=== PATIENT | female | born 1960 | race Two or more races ===

== ENCOUNTER 2019-03-11 08:41 | Inpatient (IN) | payer MEDICAID ==
[~2019-03-11] VITALS: Ht 162.6 cm; Wt 100.7 kg
[2019-03-11 08:41] VITALS: BP_SYST 117
[~2019-03-11 08:41] MED LIST: GLIP10TA11 PO; LEVO175T2 PO; NEBI10TA2 PO; TOPXL100 PO
--- NOTE | 2019-03-11 08:41 | NUR ---
BROUGHT BACK TO BED #8 AND TRIAGED. REPORT GIVEN TO AVERY
--- NOTE | 2019-03-11 09:07 | NUR ---
Patient is awake, alert, and oriented x4. Patient reports that she has been sick since October with flu like symptoms. Patient states she can not stop throwing up "sometimes", has generalized weakness. Patient denies pain at this time, last night she had lower back pain.
--- NOTE | 2019-03-11 09:15 | NUR ---
ER Dr. Reyes at bedside examining patient.
[2019-03-11] MEDS ORDERED: ASPIRIN 81 MG TAB.CHEW PO ONE (09:30)
[2019-03-11] MEDS ORDERED: LevALBUTEROL HCL 1.25 MG/0.5 ML *CONC.* VIAL.NEB (XOPENEX CONC.) INH ONE (09:30)
[2019-03-11] MEDS ORDERED: NACL 0.9% 1,000 ML IV ONE (09:30)
[2019-03-11 09:33] LABS: BILIRUBIN,URINE NEGATIVE (NEGATIVE); BLOOD, URINE NEGATIVE (NEGATIVE); CLARITY/URINE CLEAR (CLEAR); COLOR,URINE YELLOW (YELLOW); GLUCOSE,URINE 3+ (NEGATIVE); KETONES,URINE 1+ (NEGATIVE); LEUKOCYTE ESTERASE ,URINE TRACE (NEGATIVE); NITRITE, URINE NEGATIVE (NEGATIVE); PH,URINE 5.5 (5.0-8.0); PROTEIN URINE NEGATIVE (NEGATIVE)
[2019-03-11 09:41] LABS: BACTERIA,URINE MODERATE /HPF (None Seen); RBC,URINE 0-3 /HPF (0-3); WBC,URINE 20-50 /HPF (0-3)
[2019-03-11 09:51] LABS: BASOPHILS # (AUTO) 0.1 K/uL (0.0-0.2); BASOPHILS % (AUTO) 0.5 % (0.0-2.0); EOSINOPHILS % (AUTO) 0.1 % (0.0-4.0); HEMATOCRIT 41.5 % (36-48); HEMOGLOBIN 14.1 g/dL (12.0-16.0); LYMPHOCYTES # (AUTO) 0.6 K/uL (1.0-5.5); MEAN CORPUSCULAR HEMOGLOBIN 28 pg (27-31); MEAN CORPUSCULAR HGB CONC 34 % (32-36); MEAN CORPUSCULAR VOLUME 83 fL (79.0-98.0); MONOCYTES # (AUTO) 0.5 K/uL (0.0-1.0); MONOCYTES % (AUTO) 2.4 % (1.7-9.3); NEUTROPHILS # (AUTO) 17.8 K/uL (1.8-7.7); PLATELET COUNT (AUTO) 230 K/uL (130-430); RED BLOOD CELL COUNT(AUTO) 4.98 MIL/uL (4.2-6.2); RED CELL DISTRIBUTION WIDTH 12.1 % (9.0-15.0); WHITE BLOOD COUNT (AUTO) 18.9 K/uL (4.8-10.8)
[2019-03-11 10:00] LABS: CALCIUM 8.8 mg/dL (8.4-11.0); CREATININE 0.93 mg/dL (0.55-1.30); POTASSIUM 3.5 mmol/L (3.5-5.1)
[2019-03-11 10:14] LABS: ALBUMIN 3.2 g/dL (3.4-4.8); TOTAL BILIRUBIN 1.1 mg/dL (0.0-1.0)
[2019-03-11] MEDS ORDERED: cefTRIAXone 1 GM IVPB PREMIX 50 ML IV ONE (10:45)
--- NOTE | 2019-03-11 10:59 | NUR ---
Patient will be admitted to care of Dr. Carrillo. Admitted to medsurg unit. Will go to room 118B. Belongings list completed. Summary report printed. Report will be given at bedside.
--- NOTE | 2019-03-11 11:04 | NUR ---
Transfer to [facility]. Licensed nurse present. IV present no signs or symptoms of infiltration.
--- NOTE | 2019-03-11 11:08 | NUR ---
ADMIT NOTE Received pt from ER to the floor with a diagnosis of pyelonephritis. Admission process initiated. patient oriented to pain management, safety and call light-teach back done.
[2019-03-11] MEDS ORDERED: MORPHINE 2 MG/ML INJ. SYRINGE IVP PRN ×2 (11:15)
[2019-03-11] MEDS ORDERED: DEXTROSE 50% JECT 50 ML DISP.SYRIN IVP PRN (11:15)
[2019-03-11] MEDS ORDERED: ONDANSETRON HCL 4 MG/2 ML VIAL IVP PRN (11:15)
[2019-03-11] MEDS ORDERED: LORazepam 2 MG/ML VIAL IVP PRN (11:15)
[2019-03-11] MEDS ORDERED: MAGNESIUM SULFATE 50 ML IV PRN (11:15)
[2019-03-11] MEDS ORDERED: MUPIROCIN 2% TOPICAL OINTMENT 22 GM NS PRN (11:15)
[2019-03-11] MEDS ORDERED: DOCUSATE SODIUM 100 MG CAPSULE PO PRN (11:15)
[2019-03-11] MEDS ORDERED: ACETAMINOPHEN 325 MG TABLET PO PRN (11:15)
[2019-03-11] MEDS ORDERED: ZOLPIDEM TARTRATE 5 MG TABLET PO PRN (11:15)
[2019-03-11] MEDS: INSULIN LISPRO SLIDING SCALE 100 UNITS/ML VIAL (humaLOG) SUBCUT PRN ×3 (11:51→21:18)
[2019-03-11 12:02] VITALS: BP_SYST 121
[2019-03-11] MEDS: NACL 0.9% 1,000 ML IV SCH ×2 (12:08→21:22)
[2019-03-11 12:45] VITALS: BP_SYST 116
--- NOTE | 2019-03-11 14:30 | NUR ---
Rounds: Patient is asleep. No distress noted.
[2019-03-11 16:25] VITALS: BP_SYST 135
[2019-03-11 17:01] VITALS: BP_SYST 142
--- NOTE | 2019-03-11 17:02 | NUR ---
Fever: Temp= 102.3 (temporal artery), only wants ice pack on the forehead. Encouraged to increase fluid intake with cold water. Dr. Johns is aware. New order received.
[2019-03-11] MEDS: ACETAMINOPHEN 500 MG TABLET PO PRN (17:15)
--- NOTE | 2019-03-11 17:15 | NUR ---
Fever: Medicated for fever 102.3.
--- NOTE | 2019-03-11 19:30 | NUR ---
Opening notes Received report. Patient sitting up in bed. No signs of distress noted. Breathing even and unlabored. IV patent and intact, infusing fluids. Patient afebrile. VSS. Updated patient on plan of care. Patient verbalized understanding. Call light with the patient. Safety precautions in place.
[2019-03-11 20:00] VITALS: BP_SYST 111
[2019-03-11] MEDS: HEPARIN SODIUM,PORCINE 5000 UNITS/ML VIAL SUBCUT SCH (21:17)
--- NOTE | 2019-03-11 21:22 | NUR ---
Medications given. Educated the action and side effects of medications. Patient verbalized understanding and tolerated well. No signs of allergic reaction noted. Provided patient with snacks. No other needs. call light with the patient. Safety precautions in place. visitor at bedside.
[2019-03-12] VITALS (8 sets, daily range): BP systolic 112–184
--- NOTE | 2019-03-12 | NUR ---
SLEEPING NO SIGNS OF DISTRESS NOTED. BREATHING EVEN AND UNLABORED. IVF INFUSING WELL. CALL LIGHT WITH THE PATIENT. SAFETY PRECAUTIONS IN PLACE.
[2019-03-12] MEDS: ACETAMINOPHEN 500 MG TABLET PO PRN ×4 (01:48→22:32)
--- NOTE | 2019-03-12 01:50 | NUR ---
Temp 101 Patient is shivering. Temp 101. PRN Tylenol given. Educated the action and side effects of medications. Patient tolerated well. Patient refuse cooling measures.
--- NOTE | 2019-03-12 04:30 | NUR ---
SHOWER PATIENT SHOWERED. PATIENT RETURNED TO BED. NO SIGNS OF DISTRESS NOTED. BREATHING EVEN AND UNLABORED. IVF INFUSING WELL. NO OTHER NEEDS. CALL LIGHT WITH THE PATIENT. SAFETY PRECAUTIONS IN PLACE.
[2019-03-12] MEDS: LEVOTHYROXINE SODIUM 0.1 MG TABLET PO SCH (06:12)
[2019-03-12] MEDS: NACL 0.9% 1,000 ML IV SCH ×3 (06:12→21:13)
[2019-03-12] MEDS: LEVOTHYROXINE SODIUM 0.075 MG TABLET PO SCH (06:12)
[2019-03-12] MEDS: INSULIN LISPRO SLIDING SCALE 100 UNITS/ML VIAL (humaLOG) SUBCUT PRN ×4 (06:14→22:04)
--- NOTE | 2019-03-12 06:45 | NUR ---
CLOSING NOTES PATIENT RESTING COMFORTABLY IN BED, WATCHING TV. NO SIGNS OF DISTRESS NOTED. BREATHING EVEN AND UNLABORED. IV PATENT AND INTACT, INFUSING FLUIDS. ALL NEEDS MET THROUGHOUT THE SHIFT. CALL LIGHT WITH THE PATIENT. SAFETY PRECAUTIONS IN PLACE. WILL ENDORSE CARE TO DAY SHIFT RN.
--- NOTE | 2019-03-12 07:29 | NUR ---
Initial note: Patient is sleeping comfortable on her left side, no sign of distress. She is on Normal Saline IVF at 100 ml/hr infusing well via left AC #20G, no sign of infiltration. Will continue monitor.
[2019-03-12 07:44] LABS: CALCIUM 8.5 mg/dL (8.4-11.0); CREATININE 0.82 mg/dL (0.55-1.30)
[2019-03-12 07:49] LABS: BASOPHILS % (AUTO) 0.3 % (0.0-2.0); HEMATOCRIT 39.7 % (36-48); HEMOGLOBIN 13.5 g/dL (12.0-16.0); LYMPHOCYTES # (AUTO) 0.9 K/uL (1.0-5.5); MEAN CORPUSCULAR HEMOGLOBIN 29 pg (27-31); MEAN CORPUSCULAR HGB CONC 34 % (32-36); MEAN CORPUSCULAR VOLUME 84 fL (79.0-98.0); MONOCYTES # (AUTO) 0.5 K/uL (0.0-1.0); MONOCYTES % (AUTO) 4.4 % (1.7-9.3); NEUTROPHILS # (AUTO) 9.3 K/uL (1.8-7.7); NEUTROPHILS % (AUTO) 87.3 % (40.0-70.0); PLATELET COUNT (AUTO) 203 K/uL (130-430); RED CELL DISTRIBUTION WIDTH 12.1 % (9.0-15.0); WHITE BLOOD COUNT (AUTO) 10.6 K/uL (4.8-10.8)
[2019-03-12] MEDS: HEPARIN SODIUM,PORCINE 5000 UNITS/ML VIAL SUBCUT SCH ×2 (08:44→21:00)
[2019-03-12] MEDS: METOPROLOL SUCCINATE 50 MG TAB.SR.24H (TOPROL XL) PO SCH (08:45)
[2019-03-12] MEDS ORDERED: cefTRIAXone 1 GM IVPB PREMIX 50 ML IV SCH (09:00)
--- NOTE | 2019-03-12 09:42 | NUR ---
New IV access: IV site is infiltrated. Remove it and re-start a new IV site at left internal forearm # 22G, and resume antibiotics. Addendum: 03/12/19 at 0945 by Marco Antonio Echols RN wrong patient
--- NOTE | 2019-03-12 09:45 | NUR ---
MD sweeney: Dr. Carrillo makes round, aware of chilling and fever. Then he has new order to increase IVF to 150 ml/hr, and states to consult ID, Dr. Corral , if culture positive.
--- NOTE | 2019-03-12 11:22 | NUR ---
Fever: Patient is chilling with Oerk=426.3, ZO=334,RR=20,IN=723/88. Dr. Carrillo is aware of the condition. He states no need to initiated Sepsis protocol, also states that patient got IV bolus already from ER, and he is already increasing IVF to 150 ml/hr and increase the dose of Rocephin, just waiting for the culture results.
[2019-03-12] MEDS: POTASSIUM CHLORIDE 20 MEQ TAB.PRT.SR PO PRN (13:32)
--- NOTE | 2019-03-12 14:01 | NUR ---
Dietitian Recommendations * Recommend [facility] diet w/ Glucerna BID (ONS provides 440 kcal/day, 20 gm protein/day) JOSE, RD Please refer to Nutrition Assessment for details. Addendum: 03/12/19 at [address] Amended: Links added.
--- NOTE | 2019-03-12 14:04 | NUR ---
Potassium: Potassium level this morning =3.0. Give KCl 40 mEq PO as ordered. Patient tolerating well.
--- NOTE | 2019-03-12 16:00 | NUR ---
Fever: Patient is chilling and T=103.2, SE=050, RR=18, PY=886/93. Tylenol given as ordered. Page Dr. Carrillo.
--- NOTE | 2019-03-12 16:30 | NUR ---
new orders: Dr. Carrillo calls back and has ordered to change Antibiotics to Zosyn 3.375 mg IVPB Q 8 hrs. Also inform him that U/C is positive , then he has ordered to consult Dr. Corral.
--- NOTE | 2019-03-12 16:37 | NUR ---
CONSULTATION PAGED/CALLED Reason for Consultation: [] POSITIVE URINE CULTURE Person Who was Notified: [] LEFT A VOICE MESSAGE Consulting Physician: [] DR MEANS Toter Specialty: [] ID Ordering Physician: [] DR Aida FITCH
--- NOTE | 2019-03-12 16:58 | NUR ---
Application Developer Manager/Discharge Assessment Note EMAIL MARKETING COORDINATOR met with patient and at bedside. Patient has recently lost her job and her insurance. 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 Stressed with her the importance of following up with Abdi on the [employer] application. She will be able to fill her prescriptions now. She thinks her PCP will continue to see her, but [facility] information was provided. No other questions or concerns. Provided patient my card and phoned Abdi to assure he will see patient today. No barriers to discharge home with apparent at this time. Application Developer Manager/Case Management/DC Coordinator will remain available.
[2019-03-12] MEDS: PIPERACILLIN/TAZO 3.375/DEX-IS 50 ML IV SCH ×2 (17:43→22:03)
[2019-03-12] MEDS ORDERED: GENTAMICIN 100 mg/50 mL NS 50 ML IV ONE ×2 (18:00→22:37)
--- NOTE | 2019-03-12 18:00 | NUR ---
ID round: Dr. Fritz makes round for the consult, and has new orders.
--- NOTE | 2019-03-12 18:42 | NUR ---
Closing note: Patient is stable, no sign of distress, but still having mild fever ,on NS IVF at 150 ml/hr.
--- NOTE | 2019-03-12 19:30 | NUR ---
Opening notes Received report. Patient resting comfortably in bed. No signs of distress noted. Breathing even and unlabored. IV patent and intact, infusing fluids. Patient afebrile at this time, vss. No needs at this time. Updated patient on plan of care. Call light with the patient. Safety precautions in place.
[2019-03-12] MEDS ORDERED: GENTAMICIN 100 mg/50 mL NS 50 ML IV SCH (21:00)
[2019-03-12] MEDS ORDERED: INSULIN GLARGINE 100 UNITS/ML 10 ML VIAL SUBCUT SCH (21:00)
--- NOTE | 2019-03-12 22:00 | NUR ---
Medications given. Educated the action and side effects of medications. Patient verbalized understanding and tolerated well. No signs of allergic reaction noted. Accucheck 217. Insulin given per sliding scale and lantus 10 units given. Patient tolerated well. Patient refused heparin. Educated the benefits and purpose. Patient verbalized understanding but patient refused. Patient encourage to ambulate and foot exercises. No other needs at this time. Call light with the patient. Safety precautions in place.
--- NOTE | 2019-03-13 00:30 | NUR ---
SLEEPING NO SIGNS OF DISTRESS NOTED. BREATHING EVEN AND UNLABORED. VSS. AFEBRILE. IVF INFUSING WELL. CALL LIGHT WITH THE PATIENT. SAFETY PRECAUTIONS IN PLACE.
[2019-03-13 02:36] VITALS: BP_SYST 144
--- NOTE | 2019-03-13 02:39 | NUR ---
SLEEPING NO SIGNS OF DISTRESS NOTED. BREATHING EVEN AND UNLABORED. IVF INFUSING WELL. CALL LIGHT WITH THE PATIENT. SAFETY PRECAUTIONS IN PLACE.
--- NOTE | 2019-03-13 04:50 | NUR ---
Sleeping No signs of distress noted. Breathing even and unlabored. IVF infusing well. Call light with the patient. Safety precautions in place.
[2019-03-13] MEDS: PIPERACILLIN/TAZO 3.375/DEX-IS 50 ML IV SCH ×3 (06:11→23:03)
[2019-03-13] MEDS: NACL 0.9% 1,000 ML IV SCH ×4 (06:11→23:03)
[2019-03-13] MEDS: LEVOTHYROXINE SODIUM 0.1 MG TABLET PO SCH (06:11)
[2019-03-13] MEDS: LEVOTHYROXINE SODIUM 0.075 MG TABLET PO SCH (06:11)
[2019-03-13 06:37] LABS: BASOPHILS % (AUTO) 0.3 % (0.0-2.0); EOSINOPHILS % (AUTO) 0.2 % (0.0-4.0); HEMATOCRIT 38.6 % (36-48); HEMOGLOBIN 13.3 g/dL (12.0-16.0); LYMPHOCYTES # (AUTO) 1.4 K/uL (1.0-5.5); LYMPHOCYTES % (AUTO) 19.1 % (20.5-51.5); MEAN CORPUSCULAR HEMOGLOBIN 29 pg (27-31); MEAN CORPUSCULAR HGB CONC 34 % (32-36); MEAN CORPUSCULAR VOLUME 83 fL (79.0-98.0); MONOCYTES # (AUTO) 0.6 K/uL (0.0-1.0); MONOCYTES % (AUTO) 7.6 % (1.7-9.3); NEUTROPHILS # (AUTO) 5.4 K/uL (1.8-7.7); NEUTROPHILS % (AUTO) 72.8 % (40.0-70.0); PLATELET COUNT (AUTO) 187 K/uL (130-430); RED BLOOD CELL COUNT(AUTO) 4.65 MIL/uL (4.2-6.2); RED CELL DISTRIBUTION WIDTH 12.3 % (9.0-15.0); WHITE BLOOD COUNT (AUTO) 7.4 K/uL (4.8-10.8)
--- NOTE | 2019-03-13 06:45 | NUR ---
Closing notes Patient resting comfortably in bed. No signs of distress noted. Breathing even and unlabored. IV patent and intact, infusing fluids. Accucheck 147. No insulin coverage necessary. All needs met throughout the shift. No chills or shivering noted. Call light with the patient. Safety precautions in place. Will endorse care to day shift RN.
[2019-03-13 06:46] LABS: CALCIUM 8.7 mg/dL (8.4-11.0); CREATININE 0.57 mg/dL (0.55-1.30)
--- NOTE | 2019-03-13 07:45 | NUR ---
opening note patient is resting in bed, alert and oriented, visitor at the bedside, educated personnel administrator light system and plan of care, patient verbalized understanding, IV fluids running, tolerating well, fall/safety precautions in place, patient requested to take a shower after medications are given, no signs of distress and patient ambulates steady.
[2019-03-13 08:00] VITALS: BP_SYST 156
[2019-03-13] MEDS: HEPARIN SODIUM,PORCINE 5000 UNITS/ML VIAL SUBCUT SCH ×2 (08:28→21:00)
[2019-03-13] MEDS: METOPROLOL SUCCINATE 50 MG TAB.SR.24H (TOPROL XL) PO SCH (08:30)
[2019-03-13] MEDS: ACETAMINOPHEN 500 MG TABLET PO PRN ×3 (08:30→21:15)
[2019-03-13] MEDS: POTASSIUM CHLORIDE 20 MEQ TAB.PRT.SR PO PRN (08:31)
--- NOTE | 2019-03-13 09:25 | NUR ---
Patient took a shower patient finished taking a shower, no signs of distress, patient connected back to IV fluids and tolerating well.
[2019-03-13 11:22] VITALS: BP_SYST 106
--- NOTE | 2019-03-13 11:45 | NUR ---
blood sugar check patient resting in bed, accuchek done and sliding scale needed per MD order, patient verbalized understanding, no other needs at this time, fall/safety precautions in place, IV fluids running and patient tolerating well.
[2019-03-13] MEDS: INSULIN LISPRO SLIDING SCALE 100 UNITS/ML VIAL (humaLOG) SUBCUT PRN ×3 (11:48→21:05)
--- NOTE | 2019-03-13 13:32 | NUR ---
ROUNDS patient is resting in bed, eyes closed breathing easy and nonlabored, family in the room, IV fluids running, no other needs addressed at this time, fall/safety precautions in place.
[2019-03-13 14:00] VITALS: BP_SYST 149
--- NOTE | 2019-03-13 15:20 | NUR ---
IV RE-INSERTION: Complaining of pain to IV site. Restarted on right forearm. Successful after 3 attempts. Resumed current IVF of normal saline and regulated @ 150 per hour. Will observe for any signs of infiltration.
--- NOTE | 2019-03-13 17:51 | NUR ---
blood sugar check patient resting in bed, family in the room, accuchek done and sliding scale needed per MD order, patient verbalized understanding, no other needs at this time, fall/safety precautions in place, IV fluids running and patient tolerating well.
[2019-03-13] MEDS: metFORMIN HCL 500 MG TABLET PO SCH (17:53)
--- NOTE | 2019-03-13 18:23 | NUR ---
Earnest Corral s/w Korin
--- NOTE | 2019-03-13 19:03 | NUR ---
closing note patient is resting in bed, visitors at the bedside, IV fluids running, tolerating well, fall/safety precautions in place, no signs of distress and patient ambulates steady, will endorse report to noc shift nurse to continue with care, patient's urine culture came back positive, Dr Fritz was paged about the results and I am still waiting for him to call back, patient is aware about the results and isolation precautions.
--- NOTE | 2019-03-13 19:25 | NUR ---
Opening Note Patient resting in bed, awake, AOx4. IVF infusing via RFA. Patient voiced concern about her infection and worried about how she got it. No s/sx of distress. Bed is locked in lowest position, call light w/in reach. Updated board and reviewed plan of care.
[2019-03-13 20:00] VITALS: BP_SYST 143
--- NOTE | 2019-03-13 21:15 | NUR ---
temp 99.4 Patient had temp of 99.4 and given Tylenol as ordered. Fingerstick BGT done w/ result of 178 and administered insulin 2units per sliding scale.
--- NOTE | 2019-03-13 22:30 | NUR ---
Re-assess temp temp decreased to 97.2
--- NOTE | 2019-03-13 22:40 | NUR ---
Dr. Fritz Received incoming call from Dr. Fritz, and updated him on micro result. He did not provide new antibiotic orders.
[2019-03-13 23:05] VITALS: BP_SYST 155
[2019-03-14] MEDS: NACL 0.9% 1,000 ML IV SCH (06:35)
[2019-03-14] MEDS: LEVOTHYROXINE SODIUM 0.1 MG TABLET PO SCH (06:36)
[2019-03-14] MEDS: PIPERACILLIN/TAZO 3.375/DEX-IS 50 ML IV SCH (06:36)
[2019-03-14] MEDS: LEVOTHYROXINE SODIUM 0.075 MG TABLET PO SCH (06:36)
[2019-03-14 06:48] LABS: BASOPHILS % (AUTO) 0.7 % (0.0-2.0); EOSINOPHILS % (AUTO) 0.2 % (0.0-4.0); HEMATOCRIT 37.6 % (36-48); HEMOGLOBIN 12.7 g/dL (12.0-16.0); LYMPHOCYTES # (AUTO) 1.4 K/uL (1.0-5.5); MEAN CORPUSCULAR HEMOGLOBIN 28 pg (27-31); MEAN CORPUSCULAR HGB CONC 34 % (32-36); MEAN CORPUSCULAR VOLUME 84 fL (79.0-98.0); MONOCYTES # (AUTO) 0.5 K/uL (0.0-1.0); MONOCYTES % (AUTO) 6.6 % (1.7-9.3); NEUTROPHILS # (AUTO) 5.5 K/uL (1.8-7.7); NEUTROPHILS % (AUTO) 73.5 % (40.0-70.0); PLATELET COUNT (AUTO) 191 K/uL (130-430); RED BLOOD CELL COUNT(AUTO) 4.49 MIL/uL (4.2-6.2); RED CELL DISTRIBUTION WIDTH 12.1 % (9.0-15.0); WHITE BLOOD COUNT (AUTO) 7.5 K/uL (4.8-10.8)
[2019-03-14] MEDS: ACETAMINOPHEN 500 MG TABLET PO PRN (06:48)
[2019-03-14 06:56] LABS: CALCIUM 8.1 mg/dL (8.4-11.0); CREATININE 0.57 mg/dL (0.55-1.30)
--- NOTE | 2019-03-14 06:58 | NUR ---
CLOSING NOTE patient awake and resting in comfortable position. IVF infusing well. Antibiotic given. Fingerstick BGT done with result of 91, no coverage due. Will endorse care to oncoming nurse.
--- NOTE | 2019-03-14 07:35 | NUR ---
opening note patient is resting in bed, alert and oriented, visitor at the bedside, educated carbon coating machine operator light system and plan of care, patient verbalized understanding, IV fluids running, tolerating well, fall/safety precautions in place, patient requested to take a shower after medications are given, no signs of distress and patient ambulates steady, contact precautions in place.
[2019-03-14] MEDS: metFORMIN HCL 500 MG TABLET PO SCH (08:00)
[2019-03-14 08:01] VITALS: BP_SYST 139
[2019-03-14] MEDS: HEPARIN SODIUM,PORCINE 5000 UNITS/ML VIAL SUBCUT SCH (08:15)
[2019-03-14] MEDS: METOPROLOL SUCCINATE 50 MG TAB.SR.24H (TOPROL XL) PO SCH (08:24)
[2019-03-14] MEDS: POTASSIUM CHLORIDE 20 MEQ TAB.PRT.SR PO PRN (08:30)
--- NOTE | 2019-03-14 09:10 | NUR ---
Patient took a shower patient finished taking a shower, no signs of distress, patient connected back to IV fluids and tolerating well, linens were changed.
[2019-03-14] MEDS ORDERED: GLU500 PO (10:11)
[2019-03-14] MEDS ORDERED: LEVO750T45 PO (10:11)
[2019-03-14 10:30] VITALS: BP_SYST 139
--- NOTE | 2019-03-14 10:45 | NUR ---
D/C Patient Patient given medication reconciliation form and D/C instructions. Exit Care provided. Patient verbalized understanding. MD discussed with patient the results and treatment provided. Ambulatory with steady gait for discharge to home. Patient in stable condition, ID band removed. IV catheter removed, intact and dressing applied, no active bleeding. Rx of levaquin and metformin given. Patient educated on pain management. All belongings sent with patient.
== END 2019-03-14 10:45 | disposition home or self-care (01) | DRG 720 ==
LOC: SED 08:41 → SMU 10:55
PROVIDERS: ADMIT General Practice; ATTEND General Practice
DX: A41.9 Sepsis, unspecified organism (principal); E11.00 Type 2 diabetes mellitus with hyperosmolarity without nonketotic hyperglycemic-hyperosmolar coma (NKHHC); E11.65 Type 2 diabetes mellitus with hyperglycemia; E44.1 Mild protein-calorie malnutrition; E87.1 Hypo-osmolality and hyponatremia; E66.9 Obesity, unspecified; E89.0 Postprocedural hypothyroidism; I10 Essential (primary) hypertension; E87.6 Hypokalemia; B96.20 Unspecified Escherichia coli [E. coli] as the cause of diseases classified elsewhere; N10 Acute pyelonephritis; Z56.0 Unemployment, unspecified; Z90.49 Acquired absence of other specified parts of digestive tract; Z91.14 Patient's other noncompliance with medication regimen; Z68.38 Body mass index [BMI] 38.0-38.9, adult; Z79.899 Other long term (current) drug therapy
CPT/HCPCS: 36415; 71045; 80048; 80053; 81000-TC; 82962; 83036; 83605; 83735-TC; 84443-TC; 84484; 85025; 87040-TC; 87086; 87186-TC; 93005; 96361; 96365; 99285; J0696; J1580; J1644; J2543; J7030; J7060; J7612

== ENCOUNTER 2020-03-13 18:33 | Inpatient (IN) | payer BC, SELFPAY ==
[~2020-03-13] VITALS: Ht 162.6 cm; Wt 109.8 kg
[~2020-03-13 18:33] MED LIST changes: +GLU500 PO; +LEVO750T45 PO; -NEBI10TA2 PO
[2020-03-13 18:50] VITALS: BP_SYST 142
[2020-03-13 19:37] LABS: BASOPHILS % (AUTO) 0.3 % (0.0-2.0); HEMATOCRIT 42.3 % (36-48); HEMOGLOBIN 14.5 g/dL (12.0-16.0); LYMPHOCYTES # (AUTO) 0.9 K/uL (1.0-5.5); LYMPHOCYTES % (AUTO) 6.8 % (20.5-51.5); MEAN CORPUSCULAR HEMOGLOBIN 29 pg (27-31); MEAN CORPUSCULAR HGB CONC 34 % (32-36); MEAN CORPUSCULAR VOLUME 85 fL (79.0-98.0); MONOCYTES # (AUTO) 0.9 K/uL (0.0-1.0); MONOCYTES % (AUTO) 6.6 % (1.7-9.3); NEUTROPHILS # (AUTO) 11.9 K/uL (1.8-7.7); NEUTROPHILS % (AUTO) 86.3 % (40.0-70.0); PLATELET COUNT (AUTO) 185 K/uL (130-430); RED BLOOD CELL COUNT(AUTO) 4.99 MIL/uL (4.2-6.2); RED CELL DISTRIBUTION WIDTH 12.2 % (9.0-15.0); WHITE BLOOD COUNT (AUTO) 13.8 K/uL (4.8-10.8)
[2020-03-13 20:06] LABS: INR 1.1 (0.8-1.2); PROTHROMBIN TIME 11.3 SECS (9.5-12.5)
[2020-03-13 20:26] LABS: SODIUM SERUM 124 mmol/L (136-145)
[2020-03-13 20:27] LABS: ANION GAP 10 (5-15); CHLORIDE 89 mmol/L (98-107)
[2020-03-13 20:29] LABS: ALANINE AMINOTRANSFERASE 32 U/L (12-78); ASPARTATE AMINOTRANSFERASE 24 U/L (10-37); CALCIUM 8.8 mg/dL (8.4-11.0); CREATININE 1.12 mg/dL (0.55-1.30); GFR AFRICAN AMERICAN 64 mL/min (>90); GLUCOSE 402 mg/dL (70-99); TOTAL BILIRUBIN 1.4 mg/dL (0.0-1.0); UREA NITROGEN, BLOOD 11 mg/dL (8-21)
[2020-03-13 20:30] LABS: ACETONE, SERUM NEGATIVE (NEGATIVE); ALBUMIN 3.6 g/dL (3.4-4.8); AMYLASE 26 U/L (0-100); LIPASE 102 U/L (73-393)
[2020-03-13 20:56] LABS: BILIRUBIN,URINE NEGATIVE (NEGATIVE); CLARITY/URINE CLOUDY (CLEAR); COLOR,URINE YELLOW (YELLOW); GLUCOSE,URINE 3+ (NEGATIVE); KETONES,URINE 1+ (NEGATIVE); LEUKOCYTE ESTERASE ,URINE TRACE (NEGATIVE); NITRITE, URINE NEGATIVE (NEGATIVE); PH,URINE 5.5 (5.0-8.0); PROTEIN URINE TRACE (NEGATIVE); UROBILINOGEN,URINE 0.2 (0.2-1.0)
[2020-03-13] MEDS ORDERED: NACL 0.9% 1,000 ML IV ONE ×2 (21:00→21:45)
[2020-03-13] MEDS ORDERED: INSULIN REGULAR, HUMAN 10 UNITS/0.1 ML INJ IVP ONE ×3 (21:00→21:45)
[2020-03-13 21:16] LABS: BLOOD, URINE TRACE (NEGATIVE)
[2020-03-13] MEDS ORDERED: cefTRIAXone 1 GM IVPB PREMIX 50 ML IV ONE (21:45)
[2020-03-13 22:24] VITALS: BP_SYST 141
[2020-03-13] MEDS ORDERED: MORPHINE 2 MG/ML INJ. SYRINGE IVP PRN (22:30)
[2020-03-13] MEDS ORDERED: LORazepam 2 MG/ML VIAL IVP PRN (22:30)
[2020-03-13] MEDS ORDERED: NACL 0.9% 1,000 ML IV SCH (22:30)
[2020-03-13] MEDS: cefTRIAXone 1 GM IVPB PREMIX 50 ML IV SCH (22:30)
[2020-03-13] MEDS ORDERED: ONDANSETRON HCL 4 MG/2 ML VIAL IVP PRN (22:30)
[2020-03-13 22:55] LABS: BACTERIA,URINE MANY /HPF (None Seen); WBC,URINE >100 /HPF (0-3)
[2020-03-13 22:56] LABS: MUCUS,URINE None Seen /LPF (None Seen)
[2020-03-13] MEDS: NACL 0.9% 1,000 ML IV SCH (23:21)
[2020-03-14] VITALS: BP_SYST 141
[2020-03-14] MEDS: INSULIN REGULAR, HUMAN 100 UNITS/ML, 10 ML VIAL (humuLIN R) SUBCUT PRN ×6 (00:54→21:02)
[2020-03-14] MEDS: NACL 0.9% 1,000 ML IV SCH ×3 (05:17→22:28)
[2020-03-14 07:24] LABS: BASOPHILS # (AUTO) 0.1 K/uL (0.0-0.2); BASOPHILS % (AUTO) 0.7 % (0.0-2.0); HEMATOCRIT 42.7 % (36-48); HEMOGLOBIN 14.4 g/dL (12.0-16.0); LYMPHOCYTES # (AUTO) 1.1 K/uL (1.0-5.5); MEAN CORPUSCULAR HEMOGLOBIN 29 pg (27-31); MEAN CORPUSCULAR HGB CONC 34 % (32-36); MEAN CORPUSCULAR VOLUME 85 fL (79.0-98.0); MONOCYTES # (AUTO) 0.8 K/uL (0.0-1.0); NEUTROPHILS # (AUTO) 10.6 K/uL (1.8-7.7); NEUTROPHILS % (AUTO) 84.3 % (40.0-70.0); PLATELET COUNT (AUTO) 144 K/uL (130-430); RED BLOOD CELL COUNT(AUTO) 5.05 MIL/uL (4.2-6.2); RED CELL DISTRIBUTION WIDTH 12.5 % (9.0-15.0); WHITE BLOOD COUNT (AUTO) 12.6 K/uL (4.8-10.8)
[2020-03-14 07:47] LABS: CALCIUM 8.7 mg/dL (8.4-11.0); CREATININE 0.77 mg/dL (0.55-1.30); FREE T4 (FREE THYROXINE) 1.1 ng/dl (0.8-1.5); PHOSPHORUS 1.9 mg/dL (2.7-4.5); POTASSIUM 3.2 mmol/L (3.5-5.1); THYROID STIMULATING HORMONE 1.26 uIu/mL (0.36-3.74)
[2020-03-14] MEDS: ENOXAPARIN SODIUM 40 MG/0.4 ML SYRINGE SUBCUT SCH (08:44)
[2020-03-14 11:30] VITALS: BP_SYST 138
[2020-03-14] MEDS ORDERED: K PHOS 30 MM in NS 250 ML IV ONE (11:30)
[2020-03-14] MEDS ORDERED: METOPROLOL SUCCINATE 50 MG TAB.SR.24H (TOPROL XL) PO ONE (12:15)
[2020-03-14] MEDS ORDERED: metFORMIN HCL 500 MG TABLET PO ONE (12:15)
[2020-03-14] MEDS ORDERED: LEVOTHYROXINE SODIUM 0.1 MG, LEVOTHYROXINE SODIUM 0.075 MG PO ONE ×2 (12:30)
[2020-03-14] MEDS ORDERED: LEVOTHYROXINE SODIUM 0.1 MG TABLET ONE (13:56)
[2020-03-14] MEDS ORDERED: LEVOTHYROXINE SODIUM 0.075 MG TABLET PO ONE (14:15)
[2020-03-14] MEDS ORDERED: LEVOTHYROXINE SODIUM 0.1 MG TABLET PO ONE (14:15)
[2020-03-14 15:22] VITALS: BP_SYST 147
[2020-03-14] MEDS: metFORMIN HCL 500 MG TABLET PO SCH (18:00)
[2020-03-14 18:59] LABS: CREATININE 0.85 mg/dL (0.55-1.30); POTASSIUM 3.5 mmol/L (3.5-5.1)
[2020-03-14 20:05] VITALS: BP_SYST 124
[2020-03-14] MEDS: cefTRIAXone 1 GM IVPB PREMIX 50 ML IV SCH (21:00)
[2020-03-15 00:34] VITALS: BP_SYST 110
[2020-03-15] MEDS: HYDROcodone/ACETAMIN 5-325 MG TAB (NORCO/ VICODIN) PO PRN (03:11)
[2020-03-15] MEDS: LEVOTHYROXINE SODIUM 0.1 MG TABLET PO SCH (06:12)
[2020-03-15] MEDS: LEVOTHYROXINE SODIUM 0.075 MG TABLET PO SCH (06:12)
[2020-03-15] MEDS: NACL 0.9% 1,000 ML IV SCH ×4 (06:15→21:55)
[2020-03-15] MEDS ORDERED: LEVOTHYROXINE SODIUM 0.1 MG, LEVOTHYROXINE SODIUM 0.075 MG PO SCH ×2 (07:00)
[2020-03-15] MEDS: metFORMIN HCL 500 MG TABLET PO SCH ×2 (08:00→15:10)
[2020-03-15 08:25] LABS: BASOPHILS % (AUTO) 0.7 % (0.0-2.0); EOSINOPHILS % (AUTO) 0.5 % (0.0-4.0); HEMATOCRIT 42.5 % (36-48); HEMOGLOBIN 14.4 g/dL (12.0-16.0); LYMPHOCYTES # (AUTO) 1.3 K/uL (1.0-5.5); LYMPHOCYTES % (AUTO) 24.3 % (20.5-51.5); MEAN CORPUSCULAR HEMOGLOBIN 29 pg (27-31); MEAN CORPUSCULAR HGB CONC 34 % (32-36); MEAN CORPUSCULAR VOLUME 85 fL (79.0-98.0); MONOCYTES # (AUTO) 0.6 K/uL (0.0-1.0); MONOCYTES % (AUTO) 10.5 % (1.7-9.3); NEUTROPHILS # (AUTO) 3.5 K/uL (1.8-7.7); PLATELET COUNT (AUTO) 140 K/uL (130-430); RED BLOOD CELL COUNT(AUTO) 4.99 MIL/uL (4.2-6.2); RED CELL DISTRIBUTION WIDTH 12.5 % (9.0-15.0); WHITE BLOOD COUNT (AUTO) 5.4 K/uL (4.8-10.8)
[2020-03-15 08:28] LABS: CALCIUM 8.4 mg/dL (8.4-11.0); CREATININE 0.65 mg/dL (0.55-1.30); PHOSPHORUS 2.4 mg/dL (2.7-4.5); POTASSIUM 3.6 mmol/L (3.5-5.1)
[2020-03-15] MEDS: METOPROLOL SUCCINATE 50 MG TAB.SR.24H (TOPROL XL) PO SCH (09:00)
[2020-03-15] MEDS ORDERED: NON-FORMULARY MEDICATION (Levothyroxine Sodium (Synthroid) 175 MCG) PO SCH (09:00)
[2020-03-15] MEDS: ENOXAPARIN SODIUM 40 MG/0.4 ML SYRINGE SUBCUT SCH (09:00)
[2020-03-15] MEDS: INSULIN REGULAR, HUMAN 100 UNITS/ML, 10 ML VIAL (humuLIN R) SUBCUT PRN ×4 (09:12→21:44)
[2020-03-15] MEDS ORDERED: NAPH,MB-DB/K PH,MBDB 250 MG TAB PO ONE (10:45)
[2020-03-15 11:22] VITALS: BP_SYST 119
[2020-03-15] MEDS: NAPH,MB-DB/K PH,MBDB 250 MG TAB PO SCH ×2 (15:09→21:37)
[2020-03-15 15:27] VITALS: BP_SYST 125
[2020-03-15 20:00] VITALS: BP_SYST 127
[2020-03-15] MEDS: cefTRIAXone 1 GM IVPB PREMIX 50 ML IV SCH (21:55)
[2020-03-16 00:30] VITALS: BP_SYST 114
[2020-03-16] MEDS: NACL 0.9% 1,000 ML IV SCH (06:22)
[2020-03-16] MEDS: LEVOTHYROXINE SODIUM 0.075 MG TABLET PO SCH (06:23)
[2020-03-16] MEDS: LEVOTHYROXINE SODIUM 0.1 MG TABLET PO SCH (06:23)
[2020-03-16] MEDS: HYDROcodone/ACETAMIN 5-325 MG TAB (NORCO/ VICODIN) PO PRN (06:23)
[2020-03-16] MEDS ORDERED: CEPH-568 PO (07:55)
[2020-03-16] MEDS ORDERED: LEVO750T45 PO (07:55)
[2020-03-16] MEDS ORDERED: SODIUM CHLORIDE PO (07:57)
[2020-03-16 08:00] VITALS: BP_SYST 140
[2020-03-16] MEDS: metFORMIN HCL 500 MG TABLET PO SCH (08:00)
[2020-03-16] MEDS: ENOXAPARIN SODIUM 40 MG/0.4 ML SYRINGE SUBCUT SCH (08:25)
[2020-03-16] MEDS: NAPH,MB-DB/K PH,MBDB 250 MG TAB PO SCH (08:32)
[2020-03-16] MEDS: METOPROLOL SUCCINATE 50 MG TAB.SR.24H (TOPROL XL) PO SCH (08:32)
[2020-03-16] MEDS: INSULIN REGULAR, HUMAN 100 UNITS/ML, 10 ML VIAL (humuLIN R) SUBCUT PRN (08:40)
[2020-03-16 08:42] LABS: BASOPHILS # (AUTO) 0.1 K/uL (0.0-0.2); EOSINOPHILS # (AUTO) 0.1 K/uL (0.0-0.4); EOSINOPHILS % (AUTO) 1.5 % (0.0-4.0); HEMATOCRIT 39.7 % (36-48); HEMOGLOBIN 13.4 g/dL (12.0-16.0); LYMPHOCYTES # (AUTO) 1.5 K/uL (1.0-5.5); LYMPHOCYTES % (AUTO) 29.3 % (20.5-51.5); MEAN CORPUSCULAR HEMOGLOBIN 29 pg (27-31); MEAN CORPUSCULAR HGB CONC 34 % (32-36); MEAN CORPUSCULAR VOLUME 85 fL (79.0-98.0); MONOCYTES # (AUTO) 0.5 K/uL (0.0-1.0); NEUTROPHILS # (AUTO) 3.1 K/uL (1.8-7.7); NEUTROPHILS % (AUTO) 59.2 % (40.0-70.0); PLATELET COUNT (AUTO) 161 K/uL (130-430); RED BLOOD CELL COUNT(AUTO) 4.67 MIL/uL (4.2-6.2); RED CELL DISTRIBUTION WIDTH 12.4 % (9.0-15.0); WHITE BLOOD COUNT (AUTO) 5.2 K/uL (4.8-10.8)
[2020-03-16 08:56] LABS: CALCIUM 8.1 mg/dL (8.4-11.0); CREATININE 0.59 mg/dL (0.55-1.30); PHOSPHORUS 3.1 mg/dL (2.7-4.5); POTASSIUM 3.5 mmol/L (3.5-5.1)
[2020-03-16 09:35] VITALS: BP_SYST 140
[2020-03-17] MEDS ORDERED: METF1000 PO (11:50)
== END 2020-03-16 10:50 | disposition home or self-care (01) | DRG 872 ==
LOC: SED 18:33 → STU 21:56
DX: A41.9 Sepsis, unspecified organism (principal); N39.0 Urinary tract infection, site not specified; E87.1 Hypo-osmolality and hyponatremia; E87.0 Hyperosmolality and hypernatremia; Z68.41 Body mass index [BMI] 40.0-44.9, adult; Z20.828 Contact with and (suspected) exposure to other viral communicable diseases; E11.65 Type 2 diabetes mellitus with hyperglycemia; I10 Essential (primary) hypertension; E66.9 Obesity, unspecified; E89.0 Postprocedural hypothyroidism; E87.6 Hypokalemia; E83.39 Other disorders of phosphorus metabolism; E86.1 Hypovolemia; Z90.49 Acquired absence of other specified parts of digestive tract; Z79.899 Other long term (current) drug therapy
CPT/HCPCS: 36415; 71045; 76770; 80048; 80053; 81000-TC; 81003; 82009-TC; 82150-TC; 82962; 83036; 83605; 83690-TC; 83735-TC; 83880; 84100-TC; 84146; 84439; 84443-TC; 84484; 85025; 85610-TC; 85730-TC; 87040-TC; 87086; 93005; 96365; 96375; 99291; G0378; J0696; J1650; J1815; J7030; J7050

== ENCOUNTER 2020-09-15 10:08 | Day surgery (SDC) | payer BC, SELFPAY ==
[2020-09-12 11:17] LABS: BASOPHILS % (AUTO) 0.4 % (0.0-2.0); EOSINOPHILS # (AUTO) 0.1 K/uL (0.0-0.4); HEMATOCRIT 44.2 % (36-48); HEMOGLOBIN 14.8 g/dL (12.0-16.0); LYMPHOCYTES # (AUTO) 2.6 K/uL (1.0-5.5); LYMPHOCYTES % (AUTO) 29.8 % (20.5-51.5); MEAN CORPUSCULAR HEMOGLOBIN 29 pg (27-31); MEAN CORPUSCULAR HGB CONC 34 % (32-36); MEAN CORPUSCULAR VOLUME 85 fL (79.0-98.0); MONOCYTES # (AUTO) 0.5 K/uL (0.0-1.0); MONOCYTES % (AUTO) 5.3 % (1.7-9.3); NEUTROPHILS # (AUTO) 5.4 K/uL (1.8-7.7); NEUTROPHILS % (AUTO) 63.5 % (40.0-70.0); PLATELET COUNT (AUTO) 212 K/uL (130-430); RED BLOOD CELL COUNT(AUTO) 5.17 MIL/uL (4.2-6.2); RED CELL DISTRIBUTION WIDTH 12.4 % (9.0-15.0); WHITE BLOOD COUNT (AUTO) 8.6 K/uL (4.8-10.8)
[2020-09-12 11:31] LABS: BILIRUBIN,URINE NEGATIVE (NEGATIVE); CLARITY/URINE CLEAR (CLEAR); COLOR,URINE YELLOW (YELLOW); GLUCOSE,URINE 3+ (NEGATIVE); KETONES,URINE NEGATIVE (NEGATIVE); LEUKOCYTE ESTERASE ,URINE 1+ (NEGATIVE); NITRITE, URINE NEGATIVE (NEGATIVE); PH,URINE 5.5 (5.0-8.0); PROTEIN URINE NEGATIVE (NEGATIVE); UROBILINOGEN,URINE 0.2 (0.2-1.0)
[2020-09-12 11:33] LABS: PROTHROMBIN TIME 10.3 SECS (9.5-12.5)
[2020-09-12 11:37] LABS: CALCIUM 8.9 mg/dL (8.4-11.0); CREATININE 0.97 mg/dL (0.55-1.30); POTASSIUM 4.1 mmol/L (3.5-5.1)
[2020-09-12 11:41] LABS: BLOOD, URINE TRACE (NEGATIVE)
[2020-09-12 11:46] LABS: BACTERIA,URINE FEW /HPF (None Seen); YEAST,URINE Few /HPF (None Seen)
[~2020-09-15] VITALS: Ht 162.6 cm; Wt 113.4 kg
[~2020-09-15 10:08] MED LIST changes: +CEPH-568 PO; -GLU500 PO; +METF1000 PO; +SODIUM CHLORIDE PO
[2020-09-15 12:24] VITALS: BP_SYST 128
== END 2020-09-15 13:25 | disposition home or self-care (01) ==
LOC: SDS 10:08 → SMU 10:14 → SDS 13:25
PROVIDERS: ATTEND Orthopaedic Surgery
DX: M72.0 Palmar fascial fibromatosis [Dupuytren] (principal); E66.01 Morbid (severe) obesity due to excess calories; E11.9 Type 2 diabetes mellitus without complications; I10 Essential (primary) hypertension; Z20.828 Contact with and (suspected) exposure to other viral communicable diseases; Z79.01 Long term (current) use of anticoagulants; Z79.899 Other long term (current) drug therapy; Z53.8 Procedure and treatment not carried out for other reasons
CPT/HCPCS: 36415; 71046; 80048; 81000; 82962; 85025; 85610; 85730; 93005; J7120; U0003

== ENCOUNTER 2021-01-24 14:55 | Emergency (ER) | payer BC, OTHER, SELFPAY ==
[~2021-01-24] VITALS: Ht 167.6 cm; Wt 76.7 kg
[2021-01-24 15:08] VITALS: BP_SYST 121
--- NOTE | 2021-01-24 15:14 | NUR ---
Placed in room 03 . Placed on cardiac rn, blood pressure machine and pulse oximeter. To gown for exam. Side rails up.
[2021-01-24] MEDS ORDERED: NACL 0.9% 1,000 ML IV ONE (15:15)
--- NOTE | 2021-01-24 15:15 | NUR ---
RECEIVED AND IN ROOM, CALM, ALERT, RESP UNLABORED, SKIN WARM AND DRY. COMMUNICATES CLEARLY IN FULL COMPLETE SENTENCES. DENIES CP/SOB
--- NOTE | 2021-01-24 15:31 | NUR ---
DR JOSE AT BEDSIDE
--- NOTE | 2021-01-24 15:37 | NUR ---
EKG CXR COMPLETED
--- NOTE | 2021-01-24 15:56 | NUR ---
OFF TO CT HEAD VIA MARLYN
[2021-01-24 16:04] LABS: BASOPHILS % (AUTO) 0.6 % (0.0-2.0); EOSINOPHILS % (AUTO) 0.3 % (0.0-4.0); HEMATOCRIT 44.5 % (36-48); HEMOGLOBIN 15.8 g/dL (12.0-16.0); LYMPHOCYTES # (AUTO) 1.2 K/uL (1.0-5.5); LYMPHOCYTES % (AUTO) 22.8 % (20.5-51.5); MEAN CORPUSCULAR HEMOGLOBIN 30 pg (27-31); MEAN CORPUSCULAR HGB CONC 36 % (32-36); MEAN CORPUSCULAR VOLUME 84 fL (79.0-98.0); MONOCYTES # (AUTO) 0.3 K/uL (0.0-1.0); MONOCYTES % (AUTO) 6.5 % (1.7-9.3); NEUTROPHILS # (AUTO) 3.7 K/uL (1.8-7.7); NEUTROPHILS % (AUTO) 69.8 % (40.0-70.0); PLATELET COUNT (AUTO) 199 K/uL (130-430); RED BLOOD CELL COUNT(AUTO) 5.32 MIL/uL (4.2-6.2); RED CELL DISTRIBUTION WIDTH 12.7 % (9.0-15.0); WHITE BLOOD COUNT (AUTO) 5.4 K/uL (4.8-10.8)
--- NOTE | 2021-01-24 16:04 | NUR ---
BACK FROM CT, NO CHANGE IN MENTATION, CALM, ALERT, RESP UNLABORED
[2021-01-24] MEDS ORDERED: ONDANSETRON 4 MG ODT TAB PO ONE (16:15)
[2021-01-24 16:30] LABS: CALCIUM 8.9 mg/dL (8.4-11.0); CREATININE 0.89 mg/dL (0.55-1.30); POTASSIUM 3.4 mmol/L (3.5-5.1)
[2021-01-24 16:40] LABS: ALBUMIN 3.3 g/dL (3.4-4.8); TOTAL BILIRUBIN 0.6 mg/dL (0.0-1.0)
--- NOTE | 2021-01-24 17:18 | NUR ---
UP AMBULATING TO BATHROOM, STEADY GAIT, NO DYSPNEA, DENIES NAUSEA
[2021-01-24 17:32] LABS: BILIRUBIN,URINE NEGATIVE (NEGATIVE); COLOR,URINE YELLOW (YELLOW); GLUCOSE,URINE 3+ (NEGATIVE); KETONES,URINE NEGATIVE (NEGATIVE); LEUKOCYTE ESTERASE ,URINE NEGATIVE (NEGATIVE); NITRITE, URINE NEGATIVE (NEGATIVE); PROTEIN URINE 2+ (NEGATIVE); UROBILINOGEN,URINE 0.2 (0.2-1.0)
[2021-01-24 17:35] LABS: BLOOD, URINE TRACE (NEGATIVE)
[2021-01-24 17:36] LABS: CLARITY/URINE SLIGHTLY HAZY (CLEAR)
[2021-01-24 17:42] LABS: WBC,URINE 20-50 /HPF (0-3)
[2021-01-24 17:43] LABS: BACTERIA,URINE FEW /HPF (None Seen); MUCUS,URINE None Seen /LPF (None Seen); YEAST,URINE Moderate /HPF (None Seen)
[2021-01-24] MEDS ORDERED: cephALEXin 500 MG CAPSULE PO ONE (18:45)
--- NOTE | 2021-01-24 19:01 | NUR ---
calm, alert, resp unlabored, tolerating po , no distress
[2021-01-24] MEDS ORDERED: CEPH250C PO (19:17)
[2021-01-24 19:48] VITALS: BP_SYST 136
--- NOTE | 2021-01-24 19:48 | NUR ---
Patient given written and verbal discharge instructions and verbalizes understanding. ER MD discussed with patient the results and treatment provided. Patient in stable condition. ID arm band removed. IV catheter removed intact and dressing applied, no active bleeding. Rx of keflex given. Patient educated on pain management and to follow up with PMD. Pain Scale 0/10. Opportunity for questions provided and answered. Medication side effect fact sheet provided.
== END 2021-01-24 19:48 | disposition home or self-care (01) ==
LOC: SED 14:55
DX: R55 Syncope and collapse (principal); N39.0 Urinary tract infection, site not specified; E11.65 Type 2 diabetes mellitus with hyperglycemia; I10 Essential (primary) hypertension; Z79.899 Other long term (current) drug therapy
CPT/HCPCS: 36415; 70450; 76376; 80053; 81000; 82962; 83605; 84484; 85025; 87086; 93005; 99285; Q0162

== ENCOUNTER 2021-09-10 06:32 | Inpatient (IN) | payer OTHER ==
[~2021-09-10] VITALS: Ht 162.6 cm; Wt 112.0 kg
[~2021-09-10 06:32] MED LIST changes: +CEPH250C PO
[2021-09-10 06:34] VITALS: BP_SYST 144
[2021-09-10] MEDS ORDERED: ASPIRIN 81 MG TAB.CHEW PO ONE (07:00)
[2021-09-10 07:28] LABS: BASOPHILS % (AUTO) 0.5 % (0.0-2.0); EOSINOPHILS # (AUTO) 0.1 K/uL (0.0-0.4); EOSINOPHILS % (AUTO) 1.9 % (0.0-4.0); HEMATOCRIT 43.7 % (36-48); HEMOGLOBIN 14.5 g/dL (12.0-16.0); LYMPHOCYTES # (AUTO) 1.9 K/uL (1.0-5.5); LYMPHOCYTES % (AUTO) 30.9 % (20.5-51.5); MEAN CORPUSCULAR HEMOGLOBIN 28 pg (27-31); MEAN CORPUSCULAR HGB CONC 33 % (32-36); MEAN CORPUSCULAR VOLUME 83 fL (79.0-98.0); MONOCYTES # (AUTO) 0.4 K/uL (0.0-1.0); MONOCYTES % (AUTO) 5.6 % (1.7-9.3); NEUTROPHILS # (AUTO) 3.8 K/uL (1.8-7.7); NEUTROPHILS % (AUTO) 61.1 % (40.0-70.0); PLATELET COUNT (AUTO) 178 K/uL (130-430); RED BLOOD CELL COUNT(AUTO) 5.25 MIL/uL (4.2-6.2); RED CELL DISTRIBUTION WIDTH 13.9 % (9.0-15.0); WHITE BLOOD COUNT (AUTO) 6.3 K/uL (4.8-10.8)
[2021-09-10 07:41] LABS: ANION GAP 7 (5-15); CALCIUM 9.1 mg/dL (8.4-11.0); CHLORIDE 105 mmol/L (98-107); CREATININE 0.63 mg/dL (0.55-1.30); GLUCOSE 109 mg/dL (70-99); POTASSIUM 3.8 mmol/L (3.5-5.1); SODIUM SERUM 139 mmol/L (136-145); UREA NITROGEN, BLOOD 14 mg/dL (8-21)
[2021-09-10 07:49] LABS: ALANINE AMINOTRANSFERASE 29 U/L (12-78); ALBUMIN 3.4 g/dL (3.4-4.8); ASPARTATE AMINOTRANSFERASE 19 U/L (10-37); TOTAL BILIRUBIN 0.5 mg/dL (0.0-1.0)
[2021-09-10 08:17] LABS: GFR AFRICAN AMERICAN 124 mL/min (>90)
[2021-09-10] MEDS ORDERED: SEMA2PEN (08:44)
[2021-09-10] MEDS ORDERED: EMPA25TA PO (08:44)
[2021-09-10] MEDS ORDERED: INSU100I66 (08:44)
[2021-09-10 09:58] VITALS: BP_SYST 165
[2021-09-10] MEDS ORDERED: ONDANSETRON HCL 4 MG/2 ML VIAL IVP PRN (11:00)
[2021-09-10] MEDS ORDERED: ACETAMINOPHEN 325 MG TABLET PO PRN ×2 (11:00→11:30)
[2021-09-10] MEDS ORDERED: HYDROcodone/ACETAMIN 5-325 MG TAB (NORCO/ VICODIN) PO PRN (11:00)
[2021-09-10] MEDS ORDERED: LORazepam 2 MG/ML VIAL IVP PRN (11:00)
[2021-09-10] MEDS ORDERED: NALOXONE HCL 0.4 MG/ML AMP (NARCAN) IVP PRN ×2 (11:00)
[2021-09-10] MEDS ORDERED: METOPROLOL SUCCINATE 50 MG TAB.SR.24H (TOPROL XL) PO ONE (11:30)
[2021-09-10] MEDS: HYDROcodone/ACETAMIN 10-325 MG TAB PO PRN ×2 (12:06→22:41)
[2021-09-10] MEDS: NORMAL SALINE 5 ML DISP.SYRIN IVF SCH ×2 (12:07→23:22)
[2021-09-10 12:17] VITALS: BP_SYST 169
[2021-09-10] MEDS ORDERED: DEXTROSE 50% JECT 50 ML DISP.SYRIN IVP PRN (13:15)
[2021-09-10] MEDS ORDERED: INSULIN REGULAR, HUMAN 100 UNITS/ML, 10 ML VIAL (humuLIN R) SUBCUT PRN (13:15)
[2021-09-10] MEDS ORDERED: D5W 1,000 ML IV PRN (13:15)
[2021-09-10] MEDS ORDERED: GLUCOSE (DEXTROSE) ORAL GEL -Adults PO PRN (13:15)
[2021-09-10] MEDS ORDERED: NORMAL SALINE 5 ML DISP.SYRIN IVF SCH (14:00)
[2021-09-10 14:59] VITALS: BP_SYST 111
[2021-09-10] MEDS: metFORMIN HCL 500 MG TABLET PO SCH (17:12)
[2021-09-10 19:44] VITALS: BP_SYST 125
[2021-09-10] MEDS ORDERED: INSULIN GLARGINE YFGN SCH (21:00)
[2021-09-11 01:21] VITALS: BP_SYST 148
[2021-09-11] MEDS: NORMAL SALINE 5 ML DISP.SYRIN IVF SCH ×2 (06:38→14:00)
[2021-09-11 06:55] LABS: BASOPHILS % (AUTO) 0.3 % (0.0-2.0); EOSINOPHILS # (AUTO) 0.1 K/uL (0.0-0.4); EOSINOPHILS % (AUTO) 1.7 % (0.0-4.0); HEMATOCRIT 43.7 % (36-48); HEMOGLOBIN 14.5 g/dL (12.0-16.0); LYMPHOCYTES # (AUTO) 2.1 K/uL (1.0-5.5); LYMPHOCYTES % (AUTO) 34.4 % (20.5-51.5); MEAN CORPUSCULAR HEMOGLOBIN 28 pg (27-31); MEAN CORPUSCULAR HGB CONC 33 % (32-36); MEAN CORPUSCULAR VOLUME 83 fL (79.0-98.0); MONOCYTES # (AUTO) 0.4 K/uL (0.0-1.0); MONOCYTES % (AUTO) 6.5 % (1.7-9.3); NEUTROPHILS # (AUTO) 3.6 K/uL (1.8-7.7); NEUTROPHILS % (AUTO) 57.1 % (40.0-70.0); PLATELET COUNT (AUTO) 184 K/uL (130-430); RED BLOOD CELL COUNT(AUTO) 5.25 MIL/uL (4.2-6.2); RED CELL DISTRIBUTION WIDTH 13.8 % (9.0-15.0); WHITE BLOOD COUNT (AUTO) 6.2 K/uL (4.8-10.8)
[2021-09-11] MEDS ORDERED: LEVOTHYROXINE SODIUM 0.1 MG TABLET PO SCH (07:00)
[2021-09-11] MEDS ORDERED: LEVOTHYROXINE SODIUM 0.075 MG TABLET PO SCH (07:00)
[2021-09-11 07:23] LABS: CALCIUM 8.4 mg/dL (8.4-11.0); CREATININE 0.59 mg/dL (0.55-1.30); PHOSPHORUS 4.2 mg/dL (2.7-4.5); POTASSIUM 3.8 mmol/L (3.5-5.1)
[2021-09-11] MEDS: metFORMIN HCL 500 MG TABLET PO SCH ×2 (08:00→18:00)
[2021-09-11] MEDS ORDERED: METOPROLOL SUCCINATE 50 MG TAB.SR.24H (TOPROL XL) PO SCH (09:00)
[2021-09-11] MEDS ORDERED: EMPAGLIFLOZIN PO SCH (09:00)
[2021-09-11 11:31] VITALS: BP_SYST 110
[2021-09-11 15:19] VITALS: BP_SYST 111
[2021-09-11 16:30] VITALS: BP_SYST 126
[2021-09-11 17:32] VITALS: BP_SYST 126
[2021-09-11] MEDS: HYDROcodone/ACETAMIN 10-325 MG TAB PO PRN (18:30)
== END 2021-09-11 10:07 | disposition home health service (06) | DRG 313 ==
LOC: SED 06:32 → STU 08:45
PROVIDERS: ADMIT Internal Medicine Hospice and Palliative Medicine; ATTEND Internal Medicine Hospice and Palliative Medicine
DX: R07.89 Other chest pain (principal); Z68.41 Body mass index [BMI] 40.0-44.9, adult; E03.9 Hypothyroidism, unspecified; E11.65 Type 2 diabetes mellitus with hyperglycemia; E66.01 Morbid (severe) obesity due to excess calories; I10 Essential (primary) hypertension; Z20.822 Contact with and (suspected) exposure to COVID-19; Z79.2 Long term (current) use of antibiotics; Z79.899 Other long term (current) drug therapy; Z79.84 Long term (current) use of oral hypoglycemic drugs
CPT/HCPCS: 36415; 71045; 80048; 80053; 82962; 83735; 83880; 84100; 84484; 85025; 93005; 93306; 99291; C8924; G0378; J1815

== ENCOUNTER 2022-07-04 04:29 | Emergency (ER) | payer OTHER ==
[~2022-07-04] VITALS: Ht 162.6 cm; Wt 99.8 kg
[~2022-07-04 04:29] MED LIST changes: +EMPA25TA PO; +INSU100I66; -LEVO750T45 PO; +LEVO750T64 PO; +SEMA2PEN
[2022-07-04 04:45] VITALS: BP_SYST 150
[2022-07-04] MEDS ORDERED: NACL 0.9% 1,000 ML IV ONE (05:00)
[2022-07-04] MEDS ORDERED: MORPHINE 4 MG INJ. 4 MG/ML VIAL IVP ONE (05:00)
[2022-07-04] MEDS ORDERED: ONDANSETRON HCL 4 MG/2 ML VIAL IVP ONE (05:00)
[2022-07-04 06:08] LABS: BASOPHILS % (AUTO) 0.3 % (0.0-2.0); EOSINOPHILS % (AUTO) 0.3 % (0.0-4.0); HEMATOCRIT 42.4 % (36-48); HEMOGLOBIN 14.5 g/dL (12.0-16.0); LYMPHOCYTES # (AUTO) 1.6 K/uL (1.0-5.5); LYMPHOCYTES % (AUTO) 13.9 % (20.5-51.5); MEAN CORPUSCULAR HEMOGLOBIN 28 pg (27-31); MEAN CORPUSCULAR HGB CONC 34 % (32-36); MEAN CORPUSCULAR VOLUME 81 fL (79.0-98.0); MONOCYTES # (AUTO) 0.9 K/uL (0.0-1.0); MONOCYTES % (AUTO) 7.9 % (1.7-9.3); NEUTROPHILS # (AUTO) 9.1 K/uL (1.8-7.7); NEUTROPHILS % (AUTO) 77.6 % (40.0-70.0); PLATELET COUNT (AUTO) 232 K/uL (130-430); RED BLOOD CELL COUNT(AUTO) 5.22 MIL/uL (4.2-6.2); RED CELL DISTRIBUTION WIDTH 12.5 % (9.0-15.0); WHITE BLOOD COUNT (AUTO) 11.7 K/uL (4.8-10.8)
[2022-07-04 06:18] LABS: CREATININE 0.73 mg/dL (0.55-1.30)
[2022-07-04 06:22] LABS: ALBUMIN 3.2 g/dL (3.4-4.8)
[2022-07-04 06:34] LABS: BILIRUBIN,URINE NEGATIVE (NEGATIVE); BLOOD, URINE 1+ (NEGATIVE); COLOR,URINE YELLOW (YELLOW); GLUCOSE,URINE 3+ (NEGATIVE); KETONES,URINE 1+ (NEGATIVE); LEUKOCYTE ESTERASE ,URINE NEGATIVE (NEGATIVE); NITRITE, URINE NEGATIVE (NEGATIVE); PROTEIN URINE 1+ (NEGATIVE)
[2022-07-04] MEDS ORDERED: IBUP-1969 PO ×2 (06:39)
[2022-07-04 06:47] LABS: CLARITY/URINE HAZY (CLEAR)
[2022-07-04] MEDS ORDERED: ONDA-8 TL (07:19)
[2022-07-04 07:42] VITALS: BP_SYST 122
[2022-07-04 08:00] LABS: BACTERIA,URINE RARE /HPF (None Seen); WBC,URINE 0-3 /HPF (0-3)
== END 2022-07-04 07:41 | disposition home or self-care (01) ==
LOC: SED 04:29
DX: R10.11 Right upper quadrant pain (principal); R11.2 Nausea with vomiting, unspecified; E11.9 Type 2 diabetes mellitus without complications; I10 Essential (primary) hypertension; Z79.4 Long term (current) use of insulin; Z79.899 Other long term (current) drug therapy
CPT/HCPCS: 99285; 74176; 96374; 71045; 96361; 96375; 80053; 81000; 83690; 85025; 36415; 76376; 83605; J2405; J2270; J7030

== ENCOUNTER 2023-05-03 18:02 | Inpatient (IN) | payer OTHER ==
[~2023-05-03] VITALS: Ht 162.6 cm; Wt 112.0 kg
[2023-05-03] MEDS: PIPERACILLIN/TAZO 3.375/DEX-IS 50 ML IV SCH (05:00)
[~2023-05-03 18:02] MED LIST changes: +ONDA-8 TL
[2023-05-03 18:05] VITALS: PULSE 134; RESP 22; TEMP 100.2; O2SAT 96
[2023-05-03] MEDS ORDERED: NACL 0.9% 1,000 ML IV ONE (19:00)
[2023-05-03] MEDS ORDERED: KETOROLAC TROMETHAMINE 30 MG VIAL IVP ONE (19:30)
[2023-05-03] MEDS ORDERED: ONDANSETRON HCL 4 MG/2 ML VIAL IVP ONE (19:30)
[2023-05-03 19:38] LABS: HEMATOCRIT 35.8 % (36-48); HEMOGLOBIN 11.5 g/dL (12.0-16.0); MEAN CORPUSCULAR HEMOGLOBIN 30 pg (27-31); MEAN CORPUSCULAR HGB CONC 32 % (32-36); MEAN CORPUSCULAR VOLUME 93 fL (79.0-98.0); PLATELET COUNT (AUTO) 202 K/uL (130-430); RED BLOOD CELL COUNT(AUTO) 3.87 MIL/uL (4.2-6.2); RED CELL DISTRIBUTION WIDTH 22.2 % (9.0-15.0); WHITE BLOOD COUNT (AUTO) 17.7 K/uL (4.8-10.8)
[2023-05-03 19:57] LABS: INR 1.8 (0.8-1.2); PROTHROMBIN TIME 17.7 SECS (9.5-12.5)
[2023-05-03 19:59] LABS: ALANINE AMINOTRANSFERASE 47 U/L (12-78); ALBUMIN 1.3 g/dL (3.4-4.8); ANION GAP 11 (5-15); ASPARTATE AMINOTRANSFERASE 146 U/L (10-37); CALCIUM 7.8 mg/dL (8.4-11.0); CARBON DIOXIDE 23 mmol/L (23-29); CHLORIDE 95 mmol/L (98-107); CREATININE 0.72 mg/dL (0.55-1.30); GFR AFRICAN AMERICAN 105 mL/min (>90); GFR NON AFRICAN-AMERICAN 87 mL/min (>90); GLUCOSE 170 mg/dL (74-106); POTASSIUM 3.4 mmol/L (3.5-5.1); SODIUM SERUM 129 mmol/L (136-145); TOTAL PROTEIN, SERUM 7.3 g/dL (6.4-8.3); UREA NITROGEN, BLOOD 14 mg/dL (8-21)
[2023-05-03 20:01] LABS: BILIRUBIN,DIRECT 10.6 mg/dL (0.0-0.3)
[2023-05-03] MEDS ORDERED: PIPERACILLIN/TAZO 3.375 GM in NS 50 ML IV ONE (20:15)
[2023-05-03] MEDS ORDERED: ACETAMINOPHEN 500 MG TABLET PO ONE (20:15)
[2023-05-03] MEDS ORDERED: ALBUMIN HUMAN 25% 100 ML IV ONE (20:15)
[2023-05-03 20:19] LABS: BAND % (MANUAL) 8 % (0-6); BASOPHILS % (MANUAL) 0 % (0-2); EOSINOPHILS % (MANUAL) 1 % (0-7); LYMPHOCYTES % (MANUAL) 5 % (20-46); MONOCYTES % (MANUAL) 0 % (0-11); PLATELET ESTIMATE ADEQUATE (ADEQUATE); POLYCHROMASIA 1+
[2023-05-03 20:20] LABS: ANISOCYTOSIS 2+; TARGET CELLS FEW; TEAR DROP CELLS MODERATE
[2023-05-03] MEDS ORDERED: NACL 0.9% 2,000 ML IV ONE (20:30)
[2023-05-03] MEDS ORDERED: LORazepam 2 MG/ML VIAL IVP PRN (22:00)
[2023-05-03] MEDS ORDERED: ONDANSETRON HCL 4 MG/2 ML VIAL IVP PRN (22:00)
[2023-05-03] MEDS ORDERED: AZITHROMYCIN 500 MG in NS 250 ML IV ONE (22:00)
[2023-05-03] MEDS ORDERED: ACETAMINOPHEN 325 MG TABLET PO PRN (22:00)
[2023-05-03] MEDS ORDERED: HYDROcodone/ACETAMIN 5-325 MG TAB (NORCO/ VICODIN) PO PRN (22:00)
[2023-05-03] MEDS ORDERED: HYDROcodone/ACETAMIN 10-325 MG TAB PO PRN (22:00)
[2023-05-03] MEDS ORDERED: PIPERACILLIN/TAZOBACTAM 3.375 GM/VIAL (ZOSYN) IV ONE (22:03)
[2023-05-03] MEDS ORDERED: AZITHROMYCIN 500 MG/VIAL (ZITHROMAX) IV ONE (22:21)
[2023-05-03 22:28] VITALS: BP_SYST 91; PULSE 114; O2SAT 95
[2023-05-03] MEDS ORDERED: KETOROLAC TROMETHAMINE 30 MG VIAL ONE (22:44)
[2023-05-03] MEDS ORDERED: ONDANSETRON HCL 4 MG/2 ML VIAL ONE (22:44)
[2023-05-04] VITALS (22 sets, daily range): BP systolic 71–131; PULSE 82–110; RESP 11–22; TEMP 96.7–98.3; O2SAT 94–100
[2023-05-04] MEDS: IPRATROPIUM BROM 0.5 MG/2.5 ML VIAL.NEB (ATROVENT) INH SCH ×7 (04:33→23:00)
[2023-05-04 04:57] LABS: BASOPHILS % (AUTO) 0.1 % (0.0-2.0); HEMATOCRIT 27.3 % (36-48); HEMOGLOBIN 8.7 g/dL (12.0-16.0); LYMPHOCYTES % (AUTO) 10.5 % (20.5-51.5); MEAN CORPUSCULAR HEMOGLOBIN 30 pg (27-31); MEAN CORPUSCULAR HGB CONC 32 % (32-36); MEAN CORPUSCULAR VOLUME 93 fL (79.0-98.0); MONOCYTES # (AUTO) 0.9 K/uL (0.0-1.0); MONOCYTES % (AUTO) 4.4 % (1.7-9.3); NEUTROPHILS # (AUTO) 16.4 K/uL (1.8-7.7); PLATELET COUNT (AUTO) 124 K/uL (130-430); RED BLOOD CELL COUNT(AUTO) 2.95 MIL/uL (4.2-6.2); RED CELL DISTRIBUTION WIDTH 21.6 % (9.0-15.0); WHITE BLOOD COUNT (AUTO) 19.3 K/uL (4.8-10.8)
[2023-05-04 05:24] LABS: ALBUMIN 1.3 g/dL (3.4-4.8); CREATININE 0.67 mg/dL (0.55-1.30); PHOSPHORUS 2.6 mg/dL (2.7-4.5); POTASSIUM 3.2 mmol/L (3.5-5.1); TOTAL BILIRUBIN 9.8 mg/dL (0.0-1.0); TOTAL PROTEIN, SERUM 5.6 g/dL (6.4-8.3)
[2023-05-04 05:34] LABS: CALCIUM 6.8 mg/dL (8.4-11.0)
[2023-05-04] MEDS ORDERED: SEMA2PEN (05:44)
[2023-05-04] MEDS ORDERED: LEVO88TA2 PO (05:44)
[2023-05-04] MEDS ORDERED: INSU100V51 (05:44)
[2023-05-04] MEDS ORDERED: EMPA25TA PO (05:44)
[2023-05-04] MEDS ORDERED: GLIP5TAB13 PO (05:44)
[2023-05-04] MEDS ORDERED: METO50TA7 PO (05:44)
[2023-05-04] MEDS: PIPERACILLIN/TAZO 3.375/DEX-IS 50 ML IV SCH ×4 (05:51→17:23)
[2023-05-04] MEDS ORDERED: HYDROcodone/ACETAMIN 5-325 MG TAB (NORCO/ VICODIN) PO PRN (07:00)
[2023-05-04] MEDS: ALBUTEROL SULFATE 0.083% 2.5 MG/3 ML VIAL.NEB INH PRN (07:08)
[2023-05-04 08:18] LABS: BILIRUBIN,URINE 3+ (NEGATIVE); CLARITY/URINE CLEAR (CLEAR); COLOR,URINE BROWN (YELLOW); GLUCOSE,URINE TRACE (NEGATIVE); KETONES,URINE TRACE (NEGATIVE); LEUKOCYTE ESTERASE ,URINE TRACE (NEGATIVE); NITRITE, URINE POSITIVE (NEGATIVE); PH,URINE 6.5 (5.0-8.0); PROTEIN URINE 1+ (NEGATIVE)
[2023-05-04 08:22] LABS: BLOOD, URINE TRACE (NEGATIVE)
[2023-05-04 08:49] LABS: BACTERIA,URINE FEW /HPF (None Seen)
[2023-05-04 08:50] LABS: FINE GRANULAR CASTS,URINE 0-3 /LPF (None Seen); YEAST,URINE Many /HPF (None Seen)
[2023-05-04] MEDS ORDERED: MIDODRINE HCL 5 MG TABLET (PROAMATINE) PO ONE (10:45)
[2023-05-04] MEDS ORDERED: FLUCONAZOLE 200 MG TABLET (DIFLUCAN) PO ONE (11:00)
[2023-05-04] MEDS ORDERED: FUROSEMIDE 20 MG/2 ML VIAL IVP ONE (11:00)
[2023-05-04] MEDS: metroNIDAZOLE 500 mg/NS 100 ML IV SCH ×3 (11:00→22:07)
[2023-05-04] MEDS ORDERED: ALBUMIN HUMAN 25% 50 ML IV ONE (11:00)
[2023-05-04] MEDS ORDERED: NACL 0.9% 1,000 ML IV SCH (14:30)
[2023-05-04] MEDS: NOREPINEPHRINE BITARTRATE 8 MG in D5W 242 ML IV PRN (14:52)
[2023-05-04] MEDS: MIDODRINE HCL 5 MG TABLET (PROAMATINE) PO SCH ×2 (15:00→20:56)
[2023-05-04] MEDS: LACTULOSE 20 GM/30 ML UDC PO SCH (20:56)
[2023-05-04] MEDS ORDERED: MIDODRINE HCL 5 MG TABLET (PROAMATINE) ONE (20:56)
[2023-05-04] MEDS: FUROSEMIDE 20 MG/2 ML VIAL IVP SCH (20:57)
[2023-05-04] MEDS ORDERED: metroNIDAZOLE 500 mg/NS 200 ML IV ONE (22:00)
[2023-05-05] VITALS (30 sets, daily range): BP systolic 94–158; PULSE 69–133; RESP 12–35; TEMP 97–98.2; O2SAT 92–100
[2023-05-05] MEDS: PIPERACILLIN/TAZO 3.375/DEX-IS 50 ML IV SCH ×4 (00:19→17:39)
[2023-05-05] MEDS: NOREPINEPHRINE BITARTRATE 8 MG in D5W 242 ML IV PRN ×3 (00:26→21:43)
[2023-05-05] MEDS: IPRATROPIUM BROM 0.5 MG/2.5 ML VIAL.NEB (ATROVENT) INH SCH ×6 (03:00→23:19)
[2023-05-05 06:43] LABS: BASOPHILS % (AUTO) 0.1 % (0.0-2.0); EOSINOPHILS # (AUTO) 0.2 K/uL (0.0-0.4); EOSINOPHILS % (AUTO) 0.8 % (0.0-4.0); HEMATOCRIT 31.5 % (36-48); HEMOGLOBIN 10.1 g/dL (12.0-16.0); LYMPHOCYTES # (AUTO) 2.4 K/uL (1.0-5.5); LYMPHOCYTES % (AUTO) 11.1 % (20.5-51.5); MEAN CORPUSCULAR HEMOGLOBIN 30 pg (27-31); MEAN CORPUSCULAR HGB CONC 32 % (32-36); MEAN CORPUSCULAR VOLUME 92 fL (79.0-98.0); MONOCYTES # (AUTO) 0.9 K/uL (0.0-1.0); MONOCYTES % (AUTO) 4.4 % (1.7-9.3); NEUTROPHILS # (AUTO) 18.1 K/uL (1.8-7.7); NEUTROPHILS % (AUTO) 83.6 % (40.0-70.0); PLATELET COUNT (AUTO) 199 K/uL (130-430); RED BLOOD CELL COUNT(AUTO) 3.43 MIL/uL (4.2-6.2); RED CELL DISTRIBUTION WIDTH 21.5 % (9.0-15.0); WHITE BLOOD COUNT (AUTO) 21.7 K/uL (4.8-10.8)
[2023-05-05] MEDS: metroNIDAZOLE 500 mg/NS 100 ML IV SCH ×3 (07:17→21:16)
[2023-05-05 07:33] LABS: ALBUMIN 1.5 g/dL (3.4-4.8); CALCIUM 7.1 mg/dL (8.4-11.0); CREATININE 0.81 mg/dL (0.55-1.30); TOTAL BILIRUBIN 10.2 mg/dL (0.0-1.0); TOTAL PROTEIN, SERUM 6.2 g/dL (6.4-8.3)
[2023-05-05 08:45] LABS: POTASSIUM 2.8 mmol/L (3.5-5.1)
[2023-05-05] MEDS: LACTULOSE 20 GM/30 ML UDC PO SCH ×3 (09:00→21:15)
[2023-05-05] MEDS ORDERED: ENOXAPARIN SODIUM 100 MG/ML SYRINGE SUBCUT ONE (09:30)
[2023-05-05] MEDS ORDERED: KCL 20 mEq in 100 mL (PREMIX) 100 ML IV ONE (10:00)
[2023-05-05] MEDS: FUROSEMIDE 20 MG/2 ML VIAL IVP SCH ×2 (10:43→21:16)
[2023-05-05] MEDS ORDERED: KCL 40 mEq in 100 mL (PREMIX) 100 ML IV ONE (12:00)
[2023-05-05] MEDS: MIDODRINE HCL 5 MG TABLET (PROAMATINE) PO SCH ×3 (13:28→21:15)
[2023-05-05] MEDS ORDERED: CALCIUM GLUCONATE 1 GM/10 ML VIAL IVP ONE (17:15)
[2023-05-05] MEDS: D5NS 1,000 ML IV SCH (17:39)
[2023-05-05] MEDS ORDERED: CALCIUM GLUC 2 GM/100ML-NACL 100 ML IV ONE (18:00)
[2023-05-06] VITALS (29 sets, daily range): BP systolic 93–143; PULSE 71–102; RESP 15–31; TEMP 97.2–99.1; O2SAT 95–100
[2023-05-06] MEDS: PIPERACILLIN/TAZO 3.375/DEX-IS 50 ML IV SCH ×4 (00:21→18:07)
[2023-05-06] MEDS: IPRATROPIUM BROM 0.5 MG/2.5 ML VIAL.NEB (ATROVENT) INH SCH ×6 (04:18→23:00)
[2023-05-06] MEDS: metroNIDAZOLE 500 mg/NS 100 ML IV SCH ×3 (06:25→20:45)
[2023-05-06 06:39] LABS: BASOPHILS % (AUTO) 0.1 % (0.0-2.0); EOSINOPHILS # (AUTO) 0.2 K/uL (0.0-0.4); HEMOGLOBIN 8.9 g/dL (12.0-16.0); LYMPHOCYTES # (AUTO) 2.9 K/uL (1.0-5.5); LYMPHOCYTES % (AUTO) 17.9 % (20.5-51.5); MEAN CORPUSCULAR HEMOGLOBIN 29 pg (27-31); MEAN CORPUSCULAR HGB CONC 32 % (32-36); MEAN CORPUSCULAR VOLUME 92 fL (79.0-98.0); MONOCYTES # (AUTO) 0.9 K/uL (0.0-1.0); MONOCYTES % (AUTO) 5.9 % (1.7-9.3); NEUTROPHILS # (AUTO) 12.2 K/uL (1.8-7.7); NEUTROPHILS % (AUTO) 75.1 % (40.0-70.0); PLATELET COUNT (AUTO) 95 K/uL (130-430); RED BLOOD CELL COUNT(AUTO) 3.04 MIL/uL (4.2-6.2); RED CELL DISTRIBUTION WIDTH 21.3 % (9.0-15.0); WHITE BLOOD COUNT (AUTO) 16.2 K/uL (4.8-10.8)
[2023-05-06 07:13] LABS: CALCIUM 7.6 mg/dL (8.4-11.0); CREATININE 0.83 mg/dL (0.55-1.30)
[2023-05-06 07:50] LABS: POTASSIUM 2.7 mmol/L (3.5-5.1)
[2023-05-06] MEDS: LACTULOSE 20 GM/30 ML UDC PO SCH ×2 (09:00→20:41)
[2023-05-06] MEDS: MIDODRINE HCL 5 MG TABLET (PROAMATINE) PO SCH ×3 (09:57→20:41)
[2023-05-06] MEDS: FUROSEMIDE 20 MG/2 ML VIAL IVP SCH ×2 (09:57→21:40)
[2023-05-06] MEDS ORDERED: ENOXAPARIN SODIUM 40 MG/0.4 ML SYRINGE SUBCUT ONE (10:00)
[2023-05-06] MEDS: CLOTRIMAZOLE/BETAMET DIPROP 15 GM TUBE TP SCH ×2 (10:27→20:41)
[2023-05-06] MEDS: ALBUMIN HUMAN 25% 100 ML IV SCH ×3 (10:52→20:45)
[2023-05-06] MEDS ORDERED: KCL 20 mEq in 100 mL (PREMIX) 100 ML IV ONE (11:00)
[2023-05-06] MEDS: ALBUTEROL SULFATE 0.083% 2.5 MG/3 ML VIAL.NEB INH PRN (12:07)
[2023-05-06 12:52] LABS: ALBUMIN 1.1 g/dL (3.4-4.8); BILIRUBIN,DIRECT 7.1 mg/dL (0.0-0.3); TOTAL BILIRUBIN 8.1 mg/dL (0.0-1.0); TOTAL PROTEIN, SERUM 5.3 g/dL (6.4-8.3)
[2023-05-06] MEDS ORDERED: MIDODRINE HCL 5 MG TABLET (PROAMATINE) PO SCH (15:00)
[2023-05-06] MEDS: D5NS 1,000 ML IV SCH (18:07)
[2023-05-07] VITALS (23 sets, daily range): BP systolic 90–150; PULSE 79–101; RESP 15–39; TEMP 98.1–99; O2SAT 91–100
[2023-05-07] MEDS: ALBUTEROL SULFATE 0.083% 2.5 MG/3 ML VIAL.NEB INH PRN (00:11)
[2023-05-07] MEDS: PIPERACILLIN/TAZO 3.375/DEX-IS 50 ML IV SCH ×4 (00:21→17:21)
[2023-05-07] MEDS: IPRATROPIUM BROM 0.5 MG/2.5 ML VIAL.NEB (ATROVENT) INH SCH ×6 (03:00→23:00)
[2023-05-07 05:29] LABS: BASOPHILS % (AUTO) 0.1 % (0.0-2.0); EOSINOPHILS # (AUTO) 0.1 K/uL (0.0-0.4); EOSINOPHILS % (AUTO) 0.7 % (0.0-4.0); HEMATOCRIT 23.1 % (36-48); HEMOGLOBIN 7.6 g/dL (12.0-16.0); LYMPHOCYTES # (AUTO) 2.3 K/uL (1.0-5.5); LYMPHOCYTES % (AUTO) 15.6 % (20.5-51.5); MEAN CORPUSCULAR HEMOGLOBIN 30 pg (27-31); MEAN CORPUSCULAR HGB CONC 33 % (32-36); MEAN CORPUSCULAR VOLUME 92 fL (79.0-98.0); MONOCYTES # (AUTO) 0.9 K/uL (0.0-1.0); MONOCYTES % (AUTO) 5.8 % (1.7-9.3); NEUTROPHILS # (AUTO) 11.4 K/uL (1.8-7.7); NEUTROPHILS % (AUTO) 77.8 % (40.0-70.0); PLATELET COUNT (AUTO) 79 K/uL (130-430); RED BLOOD CELL COUNT(AUTO) 2.51 MIL/uL (4.2-6.2); WHITE BLOOD COUNT (AUTO) 14.7 K/uL (4.8-10.8)
[2023-05-07] MEDS: metroNIDAZOLE 500 mg/NS 100 ML IV SCH (05:29)
[2023-05-07 05:39] LABS: BILIRUBIN,DIRECT 6.6 mg/dL (0.0-0.3); CALCIUM 7.5 mg/dL (8.4-11.0); CREATININE 0.7 mg/dL (0.55-1.30); TOTAL PROTEIN, SERUM 5.1 g/dL (6.4-8.3)
[2023-05-07 06:47] LABS: POTASSIUM 2.2 mmol/L (3.5-5.1)
[2023-05-07] MEDS ORDERED: KCL 40 mEq in 100 mL (PREMIX) 100 ML IV ONE ×3 (08:15→22:00)
[2023-05-07] MEDS ORDERED: POTASSIUM CHLORIDE 20 MEQ TABLET.ER PO ONE (08:15)
[2023-05-07] MEDS ORDERED: BUMEX 1 MG/4 ML VIAL IVP ONE (08:15)
[2023-05-07] MEDS ORDERED: INSULIN ASPART 100 UNITS/ML, 10 ML VIAL (NovoLOG) SUBCUT PRN (08:45)
[2023-05-07] MEDS: ENOXAPARIN SODIUM 40 MG/0.4 ML SYRINGE SUBCUT SCH (08:54)
[2023-05-07] MEDS: FUROSEMIDE 20 MG/2 ML VIAL IVP SCH ×2 (08:55→21:56)
[2023-05-07] MEDS: MIDODRINE HCL 5 MG TABLET (PROAMATINE) PO SCH ×3 (08:56→21:56)
[2023-05-07] MEDS: POTASSIUM CHLORIDE 20 mEq in 100 mL (PREMIX) 100 ML x 2 doses IV SCH ×2 (08:56→10:52)
[2023-05-07] MEDS: LACTULOSE 20 GM/30 ML UDC PO SCH ×2 (09:00→21:57)
[2023-05-07] MEDS: CLOTRIMAZOLE/BETAMET DIPROP 15 GM TUBE TP SCH ×2 (09:12→22:01)
[2023-05-07] MEDS: INSULIN GLARGINE 100 UNITS/ML, 10 ML VIAL SUBCUT SCH (09:20)
[2023-05-07] MEDS: POTASSIUM CHLORIDE 20 MEQ/PKT PACKET PO ONE ×2 (16:30→17:14)
[2023-05-07] MEDS: INSULIN LISPRO SLIDING SCALE 100 UNITS/ML, 3 ML VIAL (humaLOG) SUBCUT PRN (17:27)
[2023-05-07] MEDS ORDERED: POTASSIUM CHLORIDE 20 MEQ/PKT PACKET PO ONE (18:00)
[2023-05-07] MEDS: DOXYCYCLINE HYCLATE 100 MG in D5W 100 ML IV SCH (21:55)
[2023-05-08] VITALS (9 sets, daily range): BP systolic 103–121; PULSE 80–86; RESP 18–22; TEMP 96.6–98.2; O2SAT 94–100
[2023-05-08] MEDS: PIPERACILLIN/TAZO 3.375/DEX-IS 50 ML IV SCH ×4 (00:19→18:41)
[2023-05-08] MEDS: IPRATROPIUM BROM 0.5 MG/2.5 ML VIAL.NEB (ATROVENT) INH SCH ×6 (03:00→23:00)
[2023-05-08 06:13] LABS: CALCIUM 7.3 mg/dL (8.4-11.0); CREATININE 0.64 mg/dL (0.55-1.30); POTASSIUM 3.3 mmol/L (3.5-5.1)
[2023-05-08 07:40] LABS: ALBUMIN 1.8 g/dL (3.4-4.8); BILIRUBIN,DIRECT 7.6 mg/dL (0.0-0.3); TOTAL PROTEIN, SERUM 5.4 g/dL (6.4-8.3)
[2023-05-08] MEDS: MIDODRINE HCL 5 MG TABLET (PROAMATINE) PO SCH ×3 (09:06→21:02)
[2023-05-08] MEDS: LACTULOSE 20 GM/30 ML UDC PO SCH ×2 (09:06→21:00)
[2023-05-08] MEDS: FUROSEMIDE 20 MG/2 ML VIAL IVP SCH ×2 (09:07→21:02)
[2023-05-08] MEDS: INSULIN GLARGINE 100 UNITS/ML, 10 ML VIAL SUBCUT SCH (09:09)
[2023-05-08] MEDS: ENOXAPARIN SODIUM 40 MG/0.4 ML SYRINGE SUBCUT SCH (09:10)
[2023-05-08] MEDS: CLOTRIMAZOLE/BETAMET DIPROP 15 GM TUBE TP SCH ×2 (09:15→21:03)
[2023-05-08] MEDS: DOXYCYCLINE HYCLATE 100 MG in D5W 100 ML IV SCH ×2 (09:26→21:01)
[2023-05-08] MEDS ORDERED: BUMEX 1 MG/4 ML VIAL IVP ONE (14:00)
[2023-05-08] MEDS: ALBUMIN HUMAN 25% 100 ML IV SCH ×2 (14:07→21:00)
[2023-05-08] MEDS ORDERED: BUMEX 1 MG/4 ML VIAL ONE (14:17)
[2023-05-08] MEDS: NYSTATIN 15 GM TOPICAL POWDER TP SCH (21:17)
[2023-05-09] VITALS: BP_SYST 113; PULSE 92; RESP 18; TEMP 97.7; O2SAT 100
[2023-05-09] MEDS: PIPERACILLIN/TAZO 3.375/DEX-IS 50 ML IV SCH ×2 (00:50→06:46)
[2023-05-09] MEDS: ALBUMIN HUMAN 25% 100 ML IV SCH (02:38)
[2023-05-09] MEDS: IPRATROPIUM BROM 0.5 MG/2.5 ML VIAL.NEB (ATROVENT) INH SCH (03:00)
[2023-05-09] MEDS ORDERED: IPRATROPIUM BROM 0.5 MG/2.5 ML VIAL.NEB (ATROVENT) INH PRN (07:00)
[2023-05-09 08:34] VITALS: BP_SYST 114; PULSE 112; RESP 20; TEMP 99.1; O2SAT 99
[2023-05-09 08:36] VITALS: O2SAT 99
[2023-05-09 09:09] LABS: ALBUMIN 2.5 g/dL (3.4-4.8); BILIRUBIN,DIRECT 7.4 mg/dL (0.0-0.3); TOTAL BILIRUBIN 9.5 mg/dL (0.0-1.0); TOTAL PROTEIN, SERUM 5.9 g/dL (6.4-8.3)
[2023-05-09] MEDS: LACTULOSE 20 GM/30 ML UDC PO SCH ×2 (09:54→20:43)
[2023-05-09] MEDS: INSULIN GLARGINE 100 UNITS/ML, 10 ML VIAL SUBCUT SCH (09:55)
[2023-05-09] MEDS: FUROSEMIDE 20 MG/2 ML VIAL IVP SCH ×2 (09:55→20:42)
[2023-05-09] MEDS: ENOXAPARIN SODIUM 40 MG/0.4 ML SYRINGE SUBCUT SCH (09:56)
[2023-05-09] MEDS: MIDODRINE HCL 5 MG TABLET (PROAMATINE) PO SCH ×3 (09:56→20:43)
[2023-05-09] MEDS: DOXYCYCLINE HYCLATE 100 MG in D5W 100 ML IV SCH ×2 (09:57→20:44)
[2023-05-09] MEDS: CLOTRIMAZOLE/BETAMET DIPROP 15 GM TUBE TP SCH ×2 (10:01→20:46)
[2023-05-09] MEDS: NYSTATIN 15 GM TOPICAL POWDER TP SCH ×2 (10:01→20:45)
[2023-05-09 11:55] VITALS: BP_SYST 110; PULSE 98; RESP 20; TEMP 98.3; O2SAT 100
[2023-05-09] MEDS: FLUCONAZOLE 200 mg/ NS 100 ML IV SCH (12:07)
[2023-05-09] MEDS ORDERED: BUMETANIDE 0.25 MG/ML; 10 ML VIAL IVP ONE (13:00)
[2023-05-09] MEDS: metroNIDAZOLE 500 mg/NS 100 ML IV SCH ×2 (14:00→22:23)
[2023-05-09] MEDS ORDERED: BUMEX 1 MG/4 ML VIAL ONE (15:09)
[2023-05-09 16:51] VITALS: BP_SYST 137; PULSE 84; RESP 20; TEMP 97.7; O2SAT 100
[2023-05-09 20:00] VITALS: BP_SYST 143; PULSE 86; RESP 19; TEMP 98; O2SAT 100
[2023-05-10] VITALS: BP_SYST 129; PULSE 102; RESP 18; TEMP 97.8; O2SAT 98
[2023-05-10] MEDS: metroNIDAZOLE 500 mg/NS 100 ML IV SCH ×3 (05:22→22:23)
[2023-05-10 08:30] VITALS: BP_SYST 98; PULSE 97; RESP 18; TEMP 98.1; O2SAT 96
[2023-05-10 08:31] VITALS: O2SAT 96
[2023-05-10] MEDS: FUROSEMIDE 20 MG/2 ML VIAL IVP SCH ×2 (09:05→21:03)
[2023-05-10] MEDS: MIDODRINE HCL 5 MG TABLET (PROAMATINE) PO SCH ×3 (09:05→21:03)
[2023-05-10] MEDS: LACTULOSE 20 GM/30 ML UDC PO SCH ×2 (09:05→21:00)
[2023-05-10] MEDS: INSULIN GLARGINE 100 UNITS/ML, 10 ML VIAL SUBCUT SCH (09:08)
[2023-05-10] MEDS: ENOXAPARIN SODIUM 40 MG/0.4 ML SYRINGE SUBCUT SCH (09:08)
[2023-05-10] MEDS: CLOTRIMAZOLE/BETAMET DIPROP 15 GM TUBE TP SCH ×2 (09:09→21:07)
[2023-05-10] MEDS: NYSTATIN 15 GM TOPICAL POWDER TP SCH ×2 (09:09→21:07)
[2023-05-10] MEDS: DOXYCYCLINE HYCLATE 100 MG in D5W 100 ML IV SCH ×2 (09:11→21:02)
[2023-05-10] MEDS: FLUCONAZOLE 200 mg/ NS 100 ML IV SCH (12:04)
[2023-05-10 12:38] VITALS: BP_SYST 104; PULSE 96; RESP 18; TEMP 98.1; O2SAT 98
[2023-05-10 13:15] VITALS: PULSE 96; O2SAT 98
[2023-05-10] MEDS ORDERED: BUMEX 1 MG/4 ML VIAL IVP ONE (14:30)
[2023-05-10] MEDS ORDERED: EMPAGLIFLOZIN PO SCH (14:30)
[2023-05-10] MEDS ORDERED: ONDANSETRON 4 MG ODT TAB TL PRN (14:30)
[2023-05-10 16:41] VITALS: BP_SYST 102; PULSE 90; RESP 18; TEMP 98.4; O2SAT 98
[2023-05-10] MEDS ORDERED: metFORMIN HCL 500 MG TABLET PO SCH (18:00)
[2023-05-11 01:30] VITALS: BP_SYST 112; PULSE 85; RESP 18; TEMP 98.3; O2SAT 93
[2023-05-11] MEDS: metroNIDAZOLE 500 mg/NS 100 ML IV SCH ×2 (06:15→13:44)
[2023-05-11] MEDS: LEVOTHYROXINE SODIUM 0.088 MG TABLET PO SCH (06:49)
[2023-05-11 07:57] VITALS: BP_SYST 132; PULSE 79; RESP 20; TEMP 98.6; O2SAT 99
[2023-05-11] MEDS: LACTULOSE 20 GM/30 ML UDC PO SCH ×2 (09:00→21:00)
[2023-05-11] MEDS ORDERED: METOPROLOL SUCCINATE 50 MG TAB.SR.24H (TOPROL XL) PO SCH ×2 (09:00)
[2023-05-11] MEDS: MIDODRINE HCL 5 MG TABLET (PROAMATINE) PO SCH ×3 (09:07→21:27)
[2023-05-11] MEDS: DOXYCYCLINE HYCLATE 100 MG in D5W 100 ML IV SCH ×2 (09:09→21:24)
[2023-05-11] MEDS: FUROSEMIDE 20 MG/2 ML VIAL IVP SCH ×2 (09:11→21:25)
[2023-05-11 09:22] LABS: BASOPHILS # (AUTO) 0.1 K/uL (0.0-0.2); BASOPHILS % (AUTO) 0.3 % (0.0-2.0); EOSINOPHILS # (AUTO) 0.1 K/uL (0.0-0.4); EOSINOPHILS % (AUTO) 0.5 % (0.0-4.0); HEMATOCRIT 31.2 % (36-48); HEMOGLOBIN 10.3 g/dL (12.0-16.0); LYMPHOCYTES # (AUTO) 3.2 K/uL (1.0-5.5); LYMPHOCYTES % (AUTO) 13.1 % (20.5-51.5); MEAN CORPUSCULAR HEMOGLOBIN 31 pg (27-31); MEAN CORPUSCULAR HGB CONC 33 % (32-36); MEAN CORPUSCULAR VOLUME 92 fL (79.0-98.0); MONOCYTES # (AUTO) 0.9 K/uL (0.0-1.0); MONOCYTES % (AUTO) 3.8 % (1.7-9.3); NEUTROPHILS # (AUTO) 19.9 K/uL (1.8-7.7); NEUTROPHILS % (AUTO) 82.3 % (40.0-70.0); PLATELET COUNT (AUTO) 82 K/uL (130-430); RED BLOOD CELL COUNT(AUTO) 3.37 MIL/uL (4.2-6.2); RED CELL DISTRIBUTION WIDTH 20.9 % (9.0-15.0); WHITE BLOOD COUNT (AUTO) 24.1 K/uL (4.8-10.8)
[2023-05-11 10:14] LABS: CALCIUM 7.4 mg/dL (8.4-11.0); CREATININE 0.79 mg/dL (0.55-1.30)
[2023-05-11 10:18] LABS: POTASSIUM 2.4 mmol/L (3.5-5.1)
[2023-05-11] MEDS ORDERED: APIXABAN 2.5 MG TABLET PO ONE (10:45)
[2023-05-11] MEDS ORDERED: SPIRONOLACTONE 25 MG TABLET (ALDACTONE) PO ONE (12:00)
[2023-05-11 12:34] VITALS: BP_SYST 127; PULSE 81; RESP 19; TEMP 97.9; O2SAT 96
[2023-05-11] MEDS ORDERED: POTASSIUM CHLORIDE 40 MEQ in NS 250 ML IV ONE (13:00)
[2023-05-11] MEDS: NYSTATIN 15 GM TOPICAL POWDER TP SCH ×2 (13:00→21:29)
[2023-05-11] MEDS: CLOTRIMAZOLE/BETAMET DIPROP 15 GM TUBE TP SCH ×2 (13:01→21:29)
[2023-05-11] MEDS: FLUCONAZOLE 200 mg/ NS 100 ML IV SCH (13:20)
[2023-05-11 16:40] VITALS: BP_SYST 124; PULSE 83; RESP 18; TEMP 98.1; O2SAT 95
[2023-05-11] MEDS ORDERED: APIXABAN 2.5 MG TABLET PO SCH (21:00)
[2023-05-12] MEDS: metroNIDAZOLE 500 mg/NS 100 ML IV SCH ×4 (00:54→21:19)
[2023-05-12 01:51] VITALS: BP_SYST 137; PULSE 91; RESP 18; TEMP 97.6; O2SAT 1
[2023-05-12] MEDS: LEVOTHYROXINE SODIUM 0.088 MG TABLET PO SCH (06:42)
[2023-05-12 08:00] VITALS: BP_SYST 122; PULSE 74; RESP 16; TEMP 98.2; O2SAT 100
[2023-05-12] MEDS: LACTULOSE 20 GM/30 ML UDC PO SCH ×2 (09:00→21:20)
[2023-05-12] MEDS: EMPAGLIFLOZIN 10 MG TABLET PO SCH ×2 (09:00→13:39)
[2023-05-12] MEDS: MIDODRINE HCL 5 MG TABLET (PROAMATINE) PO SCH ×3 (09:43→21:20)
[2023-05-12] MEDS: SPIRONOLACTONE 25 MG TABLET (ALDACTONE) PO SCH (09:45)
[2023-05-12] MEDS ORDERED: *LOVENOX 1MG/KG Q12H/PHARMACY XX ONE (09:45)
[2023-05-12] MEDS: FUROSEMIDE 20 MG/2 ML VIAL IVP SCH ×2 (09:47→21:20)
[2023-05-12 09:58] LABS: BASOPHILS % (AUTO) 0.2 % (0.0-2.0); EOSINOPHILS # (AUTO) 0.1 K/uL (0.0-0.4); EOSINOPHILS % (AUTO) 0.4 % (0.0-4.0); HEMATOCRIT 30.2 % (36-48); LYMPHOCYTES # (AUTO) 3.9 K/uL (1.0-5.5); LYMPHOCYTES % (AUTO) 19.5 % (20.5-51.5); MEAN CORPUSCULAR HEMOGLOBIN 30 pg (27-31); MEAN CORPUSCULAR HGB CONC 33 % (32-36); MEAN CORPUSCULAR VOLUME 91 fL (79.0-98.0); MONOCYTES # (AUTO) 0.7 K/uL (0.0-1.0); MONOCYTES % (AUTO) 3.4 % (1.7-9.3); NEUTROPHILS # (AUTO) 15.2 K/uL (1.8-7.7); NEUTROPHILS % (AUTO) 76.5 % (40.0-70.0); PLATELET COUNT (AUTO) 86 K/uL (130-430); RED BLOOD CELL COUNT(AUTO) 3.32 MIL/uL (4.2-6.2); RED CELL DISTRIBUTION WIDTH 20.7 % (9.0-15.0); WHITE BLOOD COUNT (AUTO) 19.9 K/uL (4.8-10.8)
[2023-05-12 10:06] LABS: CALCIUM 7.4 mg/dL (8.4-11.0); CREATININE 0.66 mg/dL (0.55-1.30)
[2023-05-12 10:24] LABS: POTASSIUM 2.4 mmol/L (3.5-5.1)
[2023-05-12] MEDS ORDERED: VANCOMYCIN HCL 1.25 GM/NS 250 ML IV ONE (11:00)
[2023-05-12] MEDS: IPRATROPIUM/ALBUTEROL SULFATE 3 ML AMPUL.NEB (DUONEB) INH SCH ×4 (11:00→23:00)
[2023-05-12 11:21] VITALS: BP_SYST 133; PULSE 73; RESP 16; TEMP 97.1; O2SAT 100
[2023-05-12 11:50] VITALS: O2SAT 93
[2023-05-12] MEDS ORDERED: FUROSEMIDE 20 MG/2 ML VIAL IVP ONE (12:00)
[2023-05-12] MEDS ORDERED: POTASSIUM CHLORIDE 40 MEQ in NS 250 ML IV ONE (13:00)
[2023-05-12] MEDS: CLOTRIMAZOLE/BETAMET DIPROP 15 GM TUBE TP SCH ×2 (13:36→21:23)
[2023-05-12] MEDS: NYSTATIN 15 GM TOPICAL POWDER TP SCH ×2 (13:37→21:19)
[2023-05-12] MEDS: DOXYCYCLINE HYCLATE 100 MG in D5W 100 ML IV SCH ×2 (13:40→20:02)
[2023-05-12] MEDS: FLUCONAZOLE 200 mg/ NS 100 ML IV SCH (14:19)
[2023-05-12 15:29] VITALS: BP_SYST 128; PULSE 82; RESP 16; TEMP 97.6; O2SAT 94
[2023-05-12 20:00] VITALS: BP_SYST 136; PULSE 91; RESP 18; TEMP 97.6; O2SAT 97
[2023-05-12] MEDS: METHYLPREDNISOLONE SOD SUCC 40 MG/ML VIAL IVP SCH (21:20)
[2023-05-12] MEDS: ENOXAPARIN SODIUM 120 MG/0.8 ML SYRINGE SUBCUT SCH (21:21)
[2023-05-13] VITALS (10 sets, daily range): BP systolic 139–149; PULSE 81–90; RESP 17–18; TEMP 97–98.1; O2SAT 92–97
[2023-05-13] MEDS: IPRATROPIUM/ALBUTEROL SULFATE 3 ML AMPUL.NEB (DUONEB) INH SCH ×6 (03:00→23:00)
[2023-05-13 04:03] LABS: BASOPHILS % (AUTO) 0.1 % (0.0-2.0); EOSINOPHILS % (AUTO) 0.1 % (0.0-4.0); HEMATOCRIT 31.2 % (36-48); HEMOGLOBIN 10.4 g/dL (12.0-16.0); LYMPHOCYTES # (AUTO) 1.7 K/uL (1.0-5.5); LYMPHOCYTES % (AUTO) 10.4 % (20.5-51.5); MEAN CORPUSCULAR HEMOGLOBIN 30 pg (27-31); MEAN CORPUSCULAR HGB CONC 33 % (32-36); MEAN CORPUSCULAR VOLUME 91 fL (79.0-98.0); MONOCYTES # (AUTO) 0.2 K/uL (0.0-1.0); MONOCYTES % (AUTO) 1.2 % (1.7-9.3); NEUTROPHILS # (AUTO) 14.4 K/uL (1.8-7.7); NEUTROPHILS % (AUTO) 88.2 % (40.0-70.0); PLATELET COUNT (AUTO) 96 K/uL (130-430); RED BLOOD CELL COUNT(AUTO) 3.42 MIL/uL (4.2-6.2); RED CELL DISTRIBUTION WIDTH 20.5 % (9.0-15.0); WHITE BLOOD COUNT (AUTO) 16.3 K/uL (4.8-10.8)
[2023-05-13 04:27] LABS: CALCIUM 7.4 mg/dL (8.4-11.0); CREATININE 0.58 mg/dL (0.55-1.30)
[2023-05-13 04:42] LABS: POTASSIUM 2.9 mmol/L (3.5-5.1)
[2023-05-13 04:55] LABS: INR 1.8 (0.8-1.2); PROTHROMBIN TIME 18.5 SECS (9.5-12.5)
[2023-05-13] MEDS ORDERED: POTASSIUM CHLORIDE 40 MEQ in NS 250 ML IV ONE (05:00)
[2023-05-13] MEDS: LEVOTHYROXINE SODIUM 0.088 MG TABLET PO SCH (06:00)
[2023-05-13] MEDS: metroNIDAZOLE 500 mg/NS 100 ML IV SCH ×3 (06:00→22:12)
[2023-05-13] MEDS: METHYLPREDNISOLONE SOD SUCC 40 MG/ML VIAL IVP SCH ×3 (08:46→22:11)
[2023-05-13] MEDS: ENOXAPARIN SODIUM 120 MG/0.8 ML SYRINGE SUBCUT SCH ×2 (08:47→22:12)
[2023-05-13] MEDS: FUROSEMIDE 20 MG/2 ML VIAL IVP SCH ×2 (08:47→22:12)
[2023-05-13] MEDS: LACTULOSE 20 GM/30 ML UDC PO SCH ×3 (08:59→22:10)
[2023-05-13] MEDS: EMPAGLIFLOZIN 10 MG TABLET PO SCH (09:00)
[2023-05-13] MEDS: MIDODRINE HCL 5 MG TABLET (PROAMATINE) PO SCH ×3 (09:00→22:10)
[2023-05-13] MEDS: SPIRONOLACTONE 25 MG TABLET (ALDACTONE) PO SCH (09:08)
[2023-05-13] MEDS: FLUCONAZOLE 200 mg/ NS 100 ML IV SCH (11:16)
[2023-05-13] MEDS: INSULIN LISPRO SLIDING SCALE 100 UNITS/ML, 3 ML VIAL (humaLOG) SUBCUT PRN ×3 (12:45→22:18)
[2023-05-13] MEDS: CLOTRIMAZOLE/BETAMET DIPROP 15 GM TUBE TP SCH ×2 (14:53→22:13)
[2023-05-13] MEDS: NYSTATIN 15 GM TOPICAL POWDER TP SCH ×2 (14:54→22:13)
[2023-05-13] MEDS: VANCOMYCIN HCL 1,250 MG in NS 250 ML IV SCH (22:14)
[2023-05-14 00:20] VITALS: BP_SYST 148; PULSE 89; RESP 18; TEMP 96.8; O2SAT 94
[2023-05-14] MEDS: IPRATROPIUM/ALBUTEROL SULFATE 3 ML AMPUL.NEB (DUONEB) INH SCH ×3 (03:00→11:00)
[2023-05-14] MEDS: LEVOTHYROXINE SODIUM 0.088 MG TABLET PO SCH (06:29)
[2023-05-14] MEDS: metroNIDAZOLE 500 mg/NS 100 ML IV SCH (06:29)
[2023-05-14 06:40] LABS: BASOPHILS # (AUTO) 0.2 K/uL (0.0-0.2); BASOPHILS % (AUTO) 0.7 % (0.0-2.0); HEMATOCRIT 30.7 % (36-48); HEMOGLOBIN 10.4 g/dL (12.0-16.0); LYMPHOCYTES # (AUTO) 3.5 K/uL (1.0-5.5); LYMPHOCYTES % (AUTO) 14.1 % (20.5-51.5); MEAN CORPUSCULAR HEMOGLOBIN 31 pg (27-31); MEAN CORPUSCULAR HGB CONC 34 % (32-36); MEAN CORPUSCULAR VOLUME 91 fL (79.0-98.0); MONOCYTES # (AUTO) 0.7 K/uL (0.0-1.0); MONOCYTES % (AUTO) 2.9 % (1.7-9.3); NEUTROPHILS # (AUTO) 20.5 K/uL (1.8-7.7); NEUTROPHILS % (AUTO) 82.3 % (40.0-70.0); PLATELET COUNT (AUTO) 127 K/uL (130-430); RED BLOOD CELL COUNT(AUTO) 3.38 MIL/uL (4.2-6.2); RED CELL DISTRIBUTION WIDTH 20.8 % (9.0-15.0); WHITE BLOOD COUNT (AUTO) 24.9 K/uL (4.8-10.8)
[2023-05-14] MEDS: INSULIN LISPRO SLIDING SCALE 100 UNITS/ML, 3 ML VIAL (humaLOG) SUBCUT PRN ×2 (06:40→12:01)
[2023-05-14 07:06] LABS: CALCIUM 7.5 mg/dL (8.4-11.0); CREATININE 0.65 mg/dL (0.55-1.30)
[2023-05-14 07:31] VITALS: O2SAT 95
[2023-05-14 08:03] LABS: POTASSIUM 2.9 mmol/L (3.5-5.1)
[2023-05-14 08:24] VITALS: BP_SYST 144; PULSE 97; RESP 16; TEMP 98; O2SAT 95
[2023-05-14] MEDS: LACTULOSE 20 GM/30 ML UDC PO SCH ×2 (08:56→09:30)
[2023-05-14] MEDS: SPIRONOLACTONE 25 MG TABLET (ALDACTONE) PO SCH (08:57)
[2023-05-14] MEDS: MIDODRINE HCL 5 MG TABLET (PROAMATINE) PO SCH (08:57)
[2023-05-14] MEDS: ENOXAPARIN SODIUM 120 MG/0.8 ML SYRINGE SUBCUT SCH (08:58)
[2023-05-14] MEDS: FUROSEMIDE 20 MG/2 ML VIAL IVP SCH (09:00)
[2023-05-14] MEDS: METHYLPREDNISOLONE SOD SUCC 40 MG/ML VIAL IVP SCH ×2 (09:01→09:31)
[2023-05-14] MEDS: EMPAGLIFLOZIN 10 MG TABLET PO SCH ×2 (09:26→09:34)
[2023-05-14] MEDS: CLOTRIMAZOLE/BETAMET DIPROP 15 GM TUBE TP SCH (09:27)
[2023-05-14] MEDS: NYSTATIN 15 GM TOPICAL POWDER TP SCH (09:28)
[2023-05-14] MEDS: VANCOMYCIN HCL 1,250 MG in NS 250 ML IV SCH (09:35)
[2023-05-14] MEDS ORDERED: POTASSIUM CHLORIDE 40 MEQ in NS 250 ML IV ONE (11:00)
[2023-05-14 11:49] VITALS: O2SAT 95
[2023-05-14 12:31] VITALS: BP_SYST 140; PULSE 91; RESP 17; TEMP 98.1; O2SAT 96
[2023-05-14 12:42] VITALS: BP_SYST 145; PULSE 87; RESP 18; TEMP 97.8; O2SAT 99
== END 2023-05-14 13:21 | disposition short-term general hospital (02) | DRG 871 ==
LOC: SED 18:02 → STU 21:54 → SIC 05-04 13:51 → STU 05-07 20:00
PROVIDERS: ADMIT Family Medicine; ATTEND Family Medicine
PROC: 05HY33Z Insertion of Infusion Device into Upper Vein, Percutaneous Approach (ICD-10-PCS; principal; 2023-05-06)
PROC: 5A0945A Assistance with Respiratory Ventilation, 24-96 Consecutive Hours, High Flow/Velocity Cannula (ICD-10-PCS; 2023-05-06)
DX: A41.50 Gram-negative sepsis, unspecified (principal); J18.9 Pneumonia, unspecified organism; R65.21 Severe sepsis with septic shock; K75.0 Abscess of liver; J96.01 Acute respiratory failure with hypoxia; T85.79XA Infection and inflammatory reaction due to other internal prosthetic devices, implants and grafts, initial encounter; Z68.41 Body mass index [BMI] 40.0-44.9, adult; R71.0 Precipitous drop in hematocrit; D68.59 Other primary thrombophilia; R18.8 Other ascites; C22.1 Intrahepatic bile duct carcinoma; D69.6 Thrombocytopenia, unspecified; I50.9 Heart failure, unspecified; B37.9 Candidiasis, unspecified; I10 Essential (primary) hypertension; E11.9 Type 2 diabetes mellitus without complications; E88.09 Other disorders of plasma-protein metabolism, not elsewhere classified; E66.9 Obesity, unspecified; Z88.5 Allergy status to narcotic agent; Z90.49 Acquired absence of other specified parts of digestive tract; I11.0 Hypertensive heart disease with heart failure
CPT/HCPCS: 36415; 71045; 76376; 76700-TC; 78579; 78580-TC; 80048; 80053; 80076; 81000; 81001; 81015; 82962; 83605; 83735; 83880; 84100; 84132; 84484; 85007; 85025; 85027; 85610-TC; 85730-TC; 86301; 87040; 87081; 87086; 93005; 93971; 94640; 94760; 96365; 96368; 97110-GP; 97530-GP; 99285; A9539; A9540; G0378; J0456; J0696; J1030; J1450; J1650; J1815; J1885; J1940; J2060; J2405; J2543; J3370; J3480; J3490; J7050; J7060; P9046